=== PATIENT | female | born 1980 | race Caucasian/White ===

== ENCOUNTER 2016-05-05 00:17 | Emergency (ER) | payer MEDICAID ==
[~2016-05-05] VITALS: Ht 167.6 cm; Wt 109.1 kg
[~2016-05-05 00:17] MED LIST: ADIPEX-P37.5 MG PO; AMBIEN 5MG TABLE5 MG PO; CELEBREX 200MG200 MG PO; CELEXA; CELEXA40 MG; CELEXA40 MG PO; COLACE 100100 MG/CAP PO; COUMADIN; COUMADIN 22.5 MG/TAB PO; COUMADIN 5MG5 MG/TAB PO; COUMADIN4 MG; COUMADIN4 MG PO; CRESTOR20 MG PO; DAZIDOX20 MG PO; DOXYCYCLINE 10100 MG PO; DOXYCYCLINE100 M3 PO; ELIQUIS 5MG PO; ESCITALOPRAM PO; FLAGYL500 MG PO; FOLIC ACID 11 MG/TA1 PO; FOLIC ACID PO; GABAPENTIN100 M1 PO; HCTZ 25MG TAB25 MG PO; LEVAQUIN 750MG750 M1 PO; LEVSIN0.125 M1 PO; LEXAPRO20 MG PO; LOVENOX 100100 MG/ML SQ; LOVENOX120 MG/0.8 SC; METROGINE; NORCO 325 MG-51 TAB PO; OXY IR5 MG PO; OXYCODONE HCL5 MG PO; OXYCONTIN 10MG10 MG PO; PERCOCET 325 MG1 TA2 PO; PHENERGAN 25 TA25 MG PO; PHENERGAN25 MG RC; PRAVASTATIN40 MG PO; PRAZOSIN PO; PRILOSEC 20MG20 MG PO; PYRIDIUM 100MG100 MG PO; SYNTHROID0.05 MG/TA PO; SYNTHROID0.088 MG/T PO; TOPAMAX 100MG100 M1 PO; ULTRAM 50MG TAB50 MG PO; VALIUM 5MG T5 MG/TAB PO; VICODIN 5/5001 UDTAB PO; XANAX1 MG PO; ZOFRAN 4MG T4 MG/TAB PO; ZOFRAN ODT4 MG PO
[2016-05-05 00:43] LABS: BASO % 0.3 % (0.0-2.0); EOS # 0.2 (0.0-0.7); EOS % 1.9 % (0-4.0); GRAN # 5.1 (1.4-6.5); GRAN % 54.7 % (42.2-75.2); HEMATOCRIT 40.7 % (37.0-47.0); HEMOGLOBIN 13.4 g/dl (12.5-16.0); LYMPH # 3.5 (1.2-3.4); LYMPH % 37.5 % (20.0-51.0); MEAN CELL VOLUME 82 fl (80.0-100.0); MEAN CORPUSCULAR HEMOGLOBIN 27 pg (27.0-31.0); MEAN CORPUSCULAR HGB CONC 33 g/dl (33.0-37.0); MONO # 0.5 (0.1-0.6); MONO % 5.3 % (1.7-9.3); PLATELET COUNT 273 K/mm3 (130-400); RED BLOOD COUNT 4.97 M/mm3 (4.10-5.30); REDCELL DISTRIBUTION WIDTH-CV 13.6 % (11.5-14.5); WHITE BLOOD COUNT 9.3 K/mm3 (4.8-10.8)
[2016-05-05 00:54] LABS: ADJUSTED CALCIUM 8.9 mg/dL (8.4-10.2); ALANINE AMINOTRANSFERASE 41 U/L (9-52); ALBUMIN 4.1 gm/dL (3.5-5.0); ALKALINE PHOSPHATASE 102 U/L (50-136); ANION GAP 15 mmol/L (7-16); BILIRUBIN,TOTAL 0.9 mg/dL (0.0-1.0); BLOOD UREA NITROGEN 12 mg/dL (7-17); CARBON DIOXIDE 21 mmol/L (22-30); CHLORIDE 106 mmol/L (98-107); CREATININE, serum 0.96 mg/dL (0.52-1.25); GLUCOSE 100 mg/dL (74-106); LIPASE 394 U/L (23-300); POTASSIUM 3.3 mmol/L (3.4-5.0); SODIUM 142 mmol/L (137-145); TOTAL PROTEIN 7.4 gm/dL (6.4-8.2)
[2016-05-05 00:58] LABS: PROTHROMBIN TIME 41.2 SECONDS (9.7-12.8)
[2016-05-05 01:01] LABS: PARTIAL THROMBOPLASTIN TIME 44.3 SECONDS (26.0-37.0)
[2016-05-05 01:08] LABS: INR 3.6 (0.8-3.0); TROPONIN-I < 0.012 ng/mL (0.000-0.034)
[2016-05-05] MEDS ORDERED: CARAFATE 1GM1 G PO (05:09)
[2016-05-05] MEDS ORDERED: PHENERGAN 25 TA25 MG PO (05:09)
[2016-05-05 05:42] VITALS: BP 108/74; PULSE 75
== END 2016-05-05 05:42 | disposition home or self-care (01) ==
LOC: COL.ER 00:17
PROVIDERS: Emergency Medicine
DX: R10.13 Epigastric pain (principal); K29.60 Other gastritis without bleeding; Z90.49 Acquired absence of other specified parts of digestive tract
CPT/HCPCS: J1170; J1200; J2405; J2550; J7030; Q9967

== ENCOUNTER 2016-08-17 01:16 | Emergency (ER) | payer MEDICAID ==
[~2016-08-17 01:16] MED LIST changes: +CARAFATE 1GM1 G PO
[2016-08-17 01:19] VITALS: BP 151/87; TEMP 98.3
[2016-08-17] MEDS ORDERED: CEPHALEXIN500 M1 PO (02:03)
[2016-08-17 02:08] VITALS: PULSE 89
== END 2016-08-17 02:09 | disposition home or self-care (01) ==
LOC: COL.ER 01:16
DX: T81.31XA Disruption of external operation (surgical) wound, not elsewhere classified, initial encounter (principal)

== ENCOUNTER 2016-09-04 16:46 | Emergency (ER) | payer MEDICAID ==
[~2016-09-04] VITALS: Ht 167.6 cm; Wt 111.4 kg
[~2016-09-04 16:46] MED LIST changes: +CEPHALEXIN500 M1 PO
[2016-09-04 16:52] VITALS: BP 144/89; TEMP 98.1
[2016-09-04] MEDS ORDERED: TYLENOL 500MG500 MG PO (18:23)
[2016-09-04 20:15] VITALS: PULSE 80
== END 2016-09-04 20:15 | disposition home or self-care (01) ==
LOC: COL.ER 16:46
DX: T81.31XA Disruption of external operation (surgical) wound, not elsewhere classified, initial encounter (principal); C44.609 Unspecified malignant neoplasm of skin of left upper limb, including shoulder; Z92.3 Personal history of irradiation
CPT/HCPCS: J2550

== ENCOUNTER 2016-09-14 06:54 | Emergency (ER) | payer MEDICAID ==
[~2016-09-14] VITALS: Ht 167.6 cm; Wt 113.6 kg
[~2016-09-14 06:54] MED LIST changes: +TYLENOL 500MG500 MG PO
[2016-09-14 06:56] VITALS: TEMP 97.4
[2016-09-14 07:41] LABS: BASO # 0.1 (0.0-0.2); BASO % 0.6 % (0.0-2.0); EOS # 0.1 (0.0-0.7); EOS % 1.6 % (0-4.0); GRAN # 4.9 (1.4-6.5); GRAN % 58.1 % (42.2-75.2); HEMATOCRIT 37.6 % (37.0-47.0); HEMOGLOBIN 12.7 g/dl (12.5-16.0); LYMPH # 2.9 (1.2-3.4); LYMPH % 34.6 % (20.0-51.0); MEAN CELL VOLUME 84 fl (80.0-100.0); MEAN CORPUSCULAR HEMOGLOBIN 28 pg (27.0-31.0); MEAN CORPUSCULAR HGB CONC 34 g/dl (33.0-37.0); MEAN PLATELET VOLUME 10.2 fl (7.4-10.4); MONO # 0.4 (0.1-0.6); MONO % 4.6 % (1.7-9.3); PLATELET COUNT 219 K/mm3 (130-400); RED BLOOD COUNT 4.47 M/mm3 (4.10-5.30); REDCELL DISTRIBUTION WIDTH-CV 14.2 % (11.5-14.5); WHITE BLOOD COUNT 8.3 K/mm3 (4.8-10.8)
[2016-09-14 07:43] LABS: INR 1.7 (0.8-3.0); PROTHROMBIN TIME 18.8 SECONDS (9.7-12.8)
[2016-09-14 07:52] LABS: C-REACTIVE PROTEIN 0.8 mg/dL (0.0-0.9); CALCIUM 8.3 mg/dL (8.4-10.2); CREATININE, serum 0.76 mg/dL (0.52-1.25); POTASSIUM 3.5 mmol/L (3.4-5.0)
[2016-09-14 08:18] LABS: ERYTHROCYTE SEDIMENTATION RATE 9 mm/hr (0-20)
[2016-09-14] MEDS ORDERED: PHENERGAN 25 TA25 MG PO (08:22)
[2016-09-14] MEDS ORDERED: ULTRAM 50MG TAB50 MG PO (08:22)
[2016-09-14 08:24] VITALS: BP 116/76; PULSE 75
== END 2016-09-14 09:14 | disposition home or self-care (01) ==
LOC: COL.ER 06:54
PROVIDERS: Emergency Medicine
DX: R51 Headache (principal); R11.0 Nausea; Z79.01 Long term (current) use of anticoagulants; Z86.718 Personal history of other venous thrombosis and embolism; S09.90XA Unspecified injury of head, initial encounter; W19.XXXA Unspecified fall, initial encounter
CPT/HCPCS: J1170; J2405; J2765; J7030

== ENCOUNTER 2016-09-23 13:22 | Emergency (ER) | payer MEDICAID ==
[~2016-09-23] VITALS: Ht 167.6 cm; Wt 113.6 kg
[2016-09-23 13:25] VITALS: BP 118/83; PULSE 79; TEMP 98.1
[2016-09-23] MEDS ORDERED: CEPHALEXIN500 M1 PO (13:54)
== END 2016-09-23 16:14 | disposition home or self-care (01) ==
LOC: COL.ER 13:22
DX: T81.31XA Disruption of external operation (surgical) wound, not elsewhere classified, initial encounter (principal); I10 Essential (primary) hypertension; Z92.3 Personal history of irradiation; Z98.890 Other specified postprocedural states; Z80.8 Family history of malignant neoplasm of other organs or systems

== ENCOUNTER 2016-11-28 21:39 | Emergency (ER) | payer MEDICAID ==
[~2016-11-28] VITALS: Ht 15.2 cm; Wt 113.6 kg
[2016-11-28 21:41] VITALS: BP 158/84; TEMP 97.9
[2016-11-28] MEDS ORDERED: PRIL40 (22:19)
[2016-11-28 22:52] LABS: PH 5 (5-8); URINE APPEARANCE Cloudy; URINE BACTERIA Occasional /hpf; URINE BILIRUBIN Negative (NEGATIVE); URINE BLOOD 3+ (NEGATIVE); URINE COLOR Yellow; URINE GLUCOSE Negative (NEGATIVE); URINE KETONE Trace (NEGATIVE); URINE RBC >50 /hpf; URINE UROBILINOGEN Negative (NEGATIVE)
[2016-11-28 22:53] LABS: URINE WBC >50 /hpf
[2016-11-28] MEDS ORDERED: CEFTIN 250250 MG/TAB PO (23:07)
[2016-11-28 23:32] VITALS: PULSE 88
== END 2016-11-28 23:32 | disposition home or self-care (01) ==
LOC: COL.ER 21:39
PROVIDERS: Nurse Practitioner
DX: N39.0 Urinary tract infection, site not specified (principal); F32.9 Major depressive disorder, single episode, unspecified; Z86.711 Personal history of pulmonary embolism; Z86.718 Personal history of other venous thrombosis and embolism; Z90.49 Acquired absence of other specified parts of digestive tract; Z86.2 Personal history of diseases of the blood and blood-forming organs and certain disorders involving the immune mechanism; Z98.890 Other specified postprocedural states

== ENCOUNTER 2017-03-19 09:54 | Day surgery (SDC) | payer MEDICAID ==
[~2017-03-19] VITALS: Ht 167.6 cm; Wt 111.0 kg
[~2017-03-19 09:54] MED LIST changes: +CEFTIN 250250 MG/TAB PO; +CEFTIN500 MG PO; +CELEXA 20MG20 MG/TAB PO; -CELEXA40 MG PO; +PRIL40 PO; +TOPAMAX50 MG PO
[2017-03-19] MEDS ORDERED: ZOFRAN 4MG T4 MG/TAB PO (10:19)
[2017-03-19 10:51] VITALS: BP 106/80; PULSE 85; TEMP 98.4
[2017-03-19 12:15] VITALS: BP 108/69; PULSE 71
[2017-03-19 12:27] VITALS: BP 117/84; PULSE 75; TEMP 98
[2017-03-19 12:30] VITALS: BP 121/96; PULSE 68
== END 2017-03-19 13:10 | disposition home or self-care (01) ==
LOC: SDCO 09:54
DX: K64.0 First degree hemorrhoids (principal); K92.1 Melena; K92.0 Hematemesis; K29.30 Chronic superficial gastritis without bleeding; I10 Essential (primary) hypertension; K21.0 Gastro-esophageal reflux disease with esophagitis; D64.9 Anemia, unspecified; K58.9 Irritable bowel syndrome, unspecified; K52.9 Noninfective gastroenteritis and colitis, unspecified; F32.9 Major depressive disorder, single episode, unspecified; F41.9 Anxiety disorder, unspecified; G43.909 Migraine, unspecified, not intractable, without status migrainosus; C44.90 Unspecified malignant neoplasm of skin, unspecified; Z90.49 Acquired absence of other specified parts of digestive tract; Z86.010 Personal history of colon polyps; Z80.0 Family history of malignant neoplasm of digestive organs; Z83.71 Family history of colonic polyps
CPT/HCPCS: J2250; J2405; J2704; J2765; J3010; J7120

== ENCOUNTER 2017-05-22 16:33 | Emergency (ER) | payer MEDICAID ==
[~2017-05-22] VITALS: Ht 167.6 cm; Wt 101.8 kg
[2017-05-22 16:37] VITALS: BP 129/77; TEMP 98.6
[2017-05-22] MEDS ORDERED: PREDNISONE20 MG PO (17:01)
[2017-05-22 18:03] LABS: BASO % 0.2 % (0.0-2.0); GRAN # 10.3 (1.4-6.5); GRAN % 87.8 % (42.2-75.2); HEMATOCRIT 42.3 % (37.0-47.0); HEMOGLOBIN 14.3 g/dl (12.5-16.0); LYMPH # 1.2 (1.2-3.4); LYMPH % 10.2 % (20.0-51.0); MEAN CELL VOLUME 86 fl (80.0-100.0); MEAN CORPUSCULAR HEMOGLOBIN 29 pg (27.0-31.0); MEAN CORPUSCULAR HGB CONC 34 g/dl (33.0-37.0); MEAN PLATELET VOLUME 10.6 fl (7.4-10.4); MONO # 0.2 (0.1-0.6); MONO % 1.5 % (1.7-9.3); PLATELET COUNT 303 K/mm3 (130-400); RED BLOOD COUNT 4.95 M/mm3 (4.10-5.30); REDCELL DISTRIBUTION WIDTH-CV 13.5 % (11.5-14.5)
[2017-05-22 18:09] LABS: ALANINE AMINOTRANSFERASE 23 U/L (9-52); ALBUMIN 4.8 gm/dL (3.5-5.0); ALKALINE PHOSPHATASE 89 U/L (50-136); ANION GAP 12 mmol/L (7-16); AST,SGOT 14 U/L (15-37); BILIRUBIN,TOTAL 0.8 mg/dL (0.0-1.0); BLOOD UREA NITROGEN 12 mg/dL (7-17); CARBON DIOXIDE 16 mmol/L (22-30); CHLORIDE 111 mmol/L (98-107); CREATININE, serum 0.79 mg/dL (0.52-1.25); GLUCOSE 124 mg/dL (74-106); POTASSIUM 4.4 mmol/L (3.4-5.0); SODIUM 139 mmol/L (137-145); TOTAL PROTEIN 8.2 gm/dL (6.4-8.2)
[2017-05-22 18:10] LABS: C-REACTIVE PROTEIN < 0.5 mg/dL (0.0-0.9)
[2017-05-22] MEDS ORDERED: NORCO 325 MG-51 TAB PO (18:23)
[2017-05-22 18:32] VITALS: PULSE 71
== END 2017-05-22 18:33 | disposition home or self-care (01) ==
LOC: COL.ER 16:33
PROVIDERS: Family Medicine
DX: M79.651 Pain in right thigh (principal); T63.691A Toxic effect of contact with other venomous marine animals, accidental (unintentional), initial encounter
CPT/HCPCS: J2270; J2550

== ENCOUNTER → 2017-08-16 | Outpatient (CLI) | payer MEDICAID ==
[~2017-08-16] MED LIST changes: +PREDNISONE20 MG PO
== END ==
LOC: MHCPAIN 11:11
DX: G89.29 Other chronic pain (principal); M79.2 Neuralgia and neuritis, unspecified; M79.1 Myalgia; M46.96 Unspecified inflammatory spondylopathy, lumbar region
CPT/HCPCS: G0463

== ENCOUNTER 2017-09-27 17:59 | Emergency (ER) | payer MEDICAID ==
[~2017-09-27] VITALS: Ht 167.6 cm; Wt 106.0 kg
[2017-09-27 18:02] VITALS: BP 122/74; TEMP 97.5
[2017-09-27 19:37] VITALS: PULSE 79
== END 2017-09-27 18:58 | disposition home or self-care (01) ==
LOC: COL.ER 17:59
DX: S90.01XA Contusion of right ankle, initial encounter (principal); X50.0XXA Overexertion from strenuous movement or load, initial encounter

== ENCOUNTER 2017-10-12 20:32 | Emergency (ER) | payer MEDICAID ==
[~2017-10-12] VITALS: Ht 167.6 cm; Wt 104.5 kg
[2017-10-12 20:35] VITALS: BP 141/95; TEMP 97.5
[2017-10-12] MEDS ORDERED: ADVIL200 MG PO (21:05)
[2017-10-12] MEDS ORDERED: TYLENOL 500MG500 MG PO (21:05)
[2017-10-12] MEDS ORDERED: EXCEDRIN1 TAB PO (21:06)
[2017-10-12] MEDS ORDERED: AMOXICILLIN 8751 TAB PO (21:51)
[2017-10-12 22:05] VITALS: PULSE 74
== END 2017-10-12 22:10 | disposition home or self-care (01) ==
LOC: COL.ER 20:32
DX: K04.7 Periapical abscess without sinus (principal); Z79.01 Long term (current) use of anticoagulants

== ENCOUNTER → 2017-11-15 | Outpatient (CLI) | payer MEDICAID ==
[~2017-11-15] MED LIST changes: +ADVIL200 MG PO; +AMBIEN 10MG10 MG PO; -AMBIEN 5MG TABLE5 MG PO; +AMOXICILLIN 8751 TAB PO; +EXCEDRIN1 TAB PO; +IMITREX100 MG PO; +PRAVACHOL 40MG40 MG PO; -PRAVASTATIN40 MG PO; +SYNTHROID0.1 MG/TAB PO; +VITAMIN B-2 100MG PO
== END ==
LOC: COL.PAINC 11:09
DX: G89.29 Other chronic pain (principal); M47.817 Spondylosis without myelopathy or radiculopathy, lumbosacral region; M54.16 Radiculopathy, lumbar region; M53.3 Sacrococcygeal disorders, not elsewhere classified; M79.605 Pain in left leg
CPT/HCPCS: G0463

== ENCOUNTER → 2017-11-15 | Outpatient (CLI) | payer MEDICAID | LOC: COL.PAINC 11:12 | DX: Z53.8 Procedure and treatment not carried out for other reasons (principal) ==

== ENCOUNTER → 2017-11-15 | Outpatient (CLI) | payer MEDICAID | LOC: MHCPAIN 11:14 → COL.PAINC 11:14 | DX: Z53.8 Procedure and treatment not carried out for other reasons (principal) ==

== ENCOUNTER 2017-11-16 00:10 | Observation (INO) | payer MEDICAID ==
[~2017-11-16] VITALS: Ht 167.6 cm; Wt 107.7 kg
[~2017-11-16 00:10] MED LIST changes: -IMITREX100 MG PO; -SYNTHROID0.1 MG/TAB PO; -VITAMIN B-2 100MG PO
[2017-11-16 00:43] LABS: BASO # 0.1 (0.0-0.2); BASO % 0.5 % (0.0-2.0); EOS # 0.1 (0.0-0.7); EOS % 0.6 % (0-4.0); GRAN # 8.2 (1.4-6.5); GRAN % 62.8 % (42.2-75.2); HEMATOCRIT 39.3 % (37.0-47.0); HEMOGLOBIN 13.1 g/dl (12.5-16.0); LYMPH # 4.1 (1.2-3.4); LYMPH % 31.3 % (20.0-51.0); MEAN CELL VOLUME 87 fl (80.0-100.0); MEAN CORPUSCULAR HEMOGLOBIN 29 pg (27.0-31.0); MEAN CORPUSCULAR HGB CONC 33 g/dl (33.0-37.0); MEAN PLATELET VOLUME 10.6 fl (7.4-10.4); MONO # 0.6 (0.1-0.6); MONO % 4.3 % (1.7-9.3); PLATELET COUNT 266 K/mm3 (130-400); RED BLOOD COUNT 4.53 M/mm3 (4.10-5.30); REDCELL DISTRIBUTION WIDTH-CV 13.5 % (11.5-14.5)
[2017-11-16 00:57] LABS: ALANINE AMINOTRANSFERASE 23 U/L (9-52); ALBUMIN 4.1 gm/dL (3.5-5.0); ALKALINE PHOSPHATASE 73 U/L (50-136); ANION GAP 13 mmol/L (7-16); AST,SGOT 18 U/L (15-37); BILIRUBIN,TOTAL 0.5 mg/dL (0.0-1.0); BLOOD UREA NITROGEN 18 mg/dL (7-17); CALCIUM 9.1 mg/dL (8.4-10.2); CARBON DIOXIDE 20 mmol/L (22-30); CHLORIDE 106 mmol/L (98-107); CREATININE, serum 0.91 mg/dL (0.52-1.25); GLUCOSE 101 mg/dL (74-106); POTASSIUM 3.5 mmol/L (3.4-5.0); SODIUM 140 mmol/L (137-145); TOTAL PROTEIN 7.4 gm/dL (6.4-8.2)
[2017-11-16 01:09] LABS: TROPONIN-I < 0.012 ng/mL (0.000-0.034)
[2017-11-16 01:13] LABS: THYROXINE (T4)-TOTAL 9.8 ug/dL (5.5-11.0)
[2017-11-16 01:18] LABS: PARTIAL THROMBOPLASTIN TIME 37.3 SECONDS (26.0-37.0)
[2017-11-16 02:21] LABS: COLLECTION METHOD CLEAN CATCH
[2017-11-16 02:26] LABS: MUCOUS Present /lpf; PH 5 (5-8); SQUAMOUS EPITHELIAL 0-2 /hpf; URINE APPEARANCE Clear; URINE BACTERIA None Seen /hpf; URINE BILIRUBIN Negative (NEGATIVE); URINE BLOOD Negative (NEGATIVE); URINE COLOR Yellow; URINE GLUCOSE Negative (NEGATIVE); URINE KETONE Negative (NEGATIVE); URINE LEUKOCYTE ESTERASE Trace (NEGATIVE); URINE NITRATE Negative (NEGATIVE); URINE PROTEIN(semi-quant) Negative (NEGATIVE); URINE RBC 0-2 /hpf; URINE UROBILINOGEN Negative (NEGATIVE)
[2017-11-16 04:13] LABS: INR 1.3 (0.8-3.0); PROTHROMBIN TIME 14.8 SECONDS (9.7-12.8)
[2017-11-16] MEDS ORDERED: VALIUM 5MG T5 MG/TAB PO (04:43)
[2017-11-16 05:19] VITALS: BP 114/65; PULSE 71; TEMP 98.6
[2017-11-16 07:48] VITALS: BP 108/73; PULSE 65; TEMP 97.9
[2017-11-16 08:09] LABS: BASO # 0.1 (0.0-0.2); BASO % 0.6 % (0.0-2.0); EOS # 0.1 (0.0-0.7); EOS % 1.2 % (0-4.0); GRAN # 6.2 (1.4-6.5); GRAN % 58.5 % (42.2-75.2); HEMOGLOBIN 12.3 g/dl (12.5-16.0); LYMPH # 3.6 (1.2-3.4); LYMPH % 34.6 % (20.0-51.0); MEAN CELL VOLUME 88 fl (80.0-100.0); MEAN CORPUSCULAR HEMOGLOBIN 29 pg (27.0-31.0); MEAN CORPUSCULAR HGB CONC 33 g/dl (33.0-37.0); MONO # 0.5 (0.1-0.6); MONO % 4.8 % (1.7-9.3); PLATELET COUNT 244 K/mm3 (130-400); REDCELL DISTRIBUTION WIDTH-CV 13.6 % (11.5-14.5)
[2017-11-16 08:33] LABS: TROPONIN-I < 0.012 ng/mL (0.000-0.034)
[2017-11-16 08:35] LABS: CREATININE, serum 0.06 mg/dL (0.52-1.25)
[2017-11-16 08:36] LABS: CALCIUM 8.5 mg/dL (8.4-10.2); POTASSIUM 3.6 mmol/L (3.4-5.0)
[2017-11-16 08:58] VITALS: BP 108/73
[2017-11-16 11:45] VITALS: BP 95/54; PULSE 58; TEMP 97.5
[2017-11-16] MEDS ORDERED: SYNTHROID0.1 MG/TAB PO (16:50)
[2017-11-16] MEDS ORDERED: VITAMIN B-2 100MG PO (16:50)
[2017-11-16] MEDS ORDERED: IMITREX100 MG PO (16:51)
[2017-11-16] MEDS ORDERED: ZOFRAN ODT4 MG PO (17:28)
== END 2017-11-16 20:08 | disposition home or self-care (01) ==
LOC: COL.ER 00:10 → SURG 03:36
PROVIDERS: Emergency Medicine; Nurse Practitioner Family
DX: R55 Syncope and collapse (principal); E03.9 Hypothyroidism, unspecified; G43.909 Migraine, unspecified, not intractable, without status migrainosus; F32.9 Major depressive disorder, single episode, unspecified; F41.9 Anxiety disorder, unspecified; E78.5 Hyperlipidemia, unspecified; D72.829 Elevated white blood cell count, unspecified; E78.1 Pure hyperglyceridemia; E46 Unspecified protein-calorie malnutrition; Z79.01 Long term (current) use of anticoagulants; Z90.49 Acquired absence of other specified parts of digestive tract; Z88.3 Allergy status to other anti-infective agents; Z86.718 Personal history of other venous thrombosis and embolism; Z86.711 Personal history of pulmonary embolism; Z87.19 Personal history of other diseases of the digestive system
CPT/HCPCS: J1885; J2405; J7030; Q9967

== ENCOUNTER 2017-11-16 09:15 | Outpatient (RCR) | payer MEDICAID ==
[2017-11-16] MEDS ORDERED: VITAMIN B-2 100MG PO (16:50)
[2017-11-16] MEDS ORDERED: SYNTHROID0.1 MG/TAB PO (16:50)
[2017-11-16] MEDS ORDERED: IMITREX100 MG PO (16:51)
[2017-11-16] MEDS ORDERED: ZOFRAN ODT4 MG PO (17:28)
== END 2017-11-30 | disposition home or self-care (01) ==
LOC: WSPT
DX: M46.96 Unspecified inflammatory spondylopathy, lumbar region (principal); M79.1 Myalgia; M79.2 Neuralgia and neuritis, unspecified; G89.29 Other chronic pain
CPT/HCPCS: G0283-GP

== ENCOUNTER → 2017-12-01 | Outpatient (CLI) | payer SELFPAY ==
[~2017-12-01] MED LIST changes: +IMITREX100 MG PO; +SYNTHROID0.1 MG/TAB PO; +VITAMIN B-2 100MG PO
== END ==
LOC: COL.VAS 12:12
DX: M79.89 Other specified soft tissue disorders (principal); M79.662 Pain in left lower leg

== ENCOUNTER 2018-01-30 21:05 | Observation (INO) | payer MEDICAID ==
[~2018-01-30] VITALS: Ht 167.6 cm; Wt 103.5 kg
[2018-01-30 22:21] LABS: BASO # 0.1 (0.0-0.2); BASO % 0.7 % (0.0-2.0); EOS # 0.1 (0.0-0.7); EOS % 0.9 % (0-4.0); GRAN # 6.2 (1.4-6.5); GRAN % 58.3 % (42.2-75.2); HEMATOCRIT 38.8 % (37.0-47.0); LYMPH # 3.7 (1.2-3.4); MEAN CELL VOLUME 88 fl (80.0-100.0); MEAN CORPUSCULAR HEMOGLOBIN 29 pg (27.0-31.0); MEAN CORPUSCULAR HGB CONC 34 g/dl (33.0-37.0); MEAN PLATELET VOLUME 10.3 fl (7.4-10.4); MONO # 0.5 (0.1-0.6); MONO % 4.9 % (1.7-9.3); PLATELET COUNT 258 K/mm3 (130-400); RED BLOOD COUNT 4.42 M/mm3 (4.10-5.30); REDCELL DISTRIBUTION WIDTH-CV 13.3 % (11.5-14.5)
[2018-01-30 22:34] LABS: ALBUMIN 3.8 gm/dL (3.5-5.0); BILIRUBIN,TOTAL 0.4 mg/dL (0.0-1.0); CALCIUM 8.6 mg/dL (8.4-10.2); CREATININE, serum 0.73 mg/dL (0.52-1.25); POTASSIUM 3.8 mmol/L (3.4-5.0)
[2018-01-30 23:50] LABS: COLLECTION METHOD CLEAN CATCH
[2018-01-30 23:59] LABS: PH 6 (5-8); SQUAMOUS EPITHELIAL 0-2 /hpf; URINE APPEARANCE Clear; URINE BACTERIA None Seen /hpf; URINE BILIRUBIN Negative (NEGATIVE); URINE BLOOD Negative (NEGATIVE); URINE COLOR Yellow; URINE GLUCOSE Negative (NEGATIVE); URINE KETONE Negative (NEGATIVE); URINE LEUKOCYTE ESTERASE Negative (NEGATIVE); URINE NITRATE Negative (NEGATIVE); URINE PROTEIN(semi-quant) Negative (NEGATIVE); URINE RBC None Seen /hpf; URINE UROBILINOGEN Negative (NEGATIVE)
[2018-01-31] VITALS (11 sets, daily range): BP systolic 91–118; BP diastolic 38–69; PULSE 75–117; TEMP 97.6–98.2
[2018-01-31] MEDS ORDERED: MULTI VITAMINS1 TAB PO (01:05)
[2018-01-31] MEDS ORDERED: RT ALBUTER2.5 MG/0.5 IH (01:13)
[2018-01-31] MEDS ORDERED: MAGNESIUM CHELA27 MG PO (01:14)
[2018-01-31] MEDS ORDERED: THE MEDICINE S200 M2 PO (01:15)
[2018-02-01] VITALS: BP 119/77; PULSE 74; TEMP 97.8
[2018-02-01 07:54] VITALS: BP 116/74; PULSE 78; TEMP 97.9
[2018-02-01 12:00] VITALS: BP 118/68; PULSE 73; TEMP 97.9
[2018-02-01 15:30] VITALS: BP 103/68; PULSE 77; TEMP 97.6
[2018-02-01] MEDS ORDERED: PERCOCET 325 MG1 TA3 PO (17:09)
[2018-02-01] MEDS ORDERED: MOTRIN 600600 MG/TAB PO (17:09)
[2018-02-01] MEDS ORDERED: COLACE 100100 MG/CAP PO (17:10)
== END 2018-02-01 18:04 | disposition home or self-care (01) ==
LOC: COL.ER 21:05 → SURG 01-31 00:15
PROVIDERS: Family Medicine
DX: K35.80 Unspecified acute appendicitis (principal); G43.909 Migraine, unspecified, not intractable, without status migrainosus; G89.29 Other chronic pain; M54.9 Dorsalgia, unspecified; J45.909 Unspecified asthma, uncomplicated; K21.9 Gastro-esophageal reflux disease without esophagitis; F32.9 Major depressive disorder, single episode, unspecified; F41.9 Anxiety disorder, unspecified; E03.9 Hypothyroidism, unspecified; E66.9 Obesity, unspecified; Z68.37 Body mass index [BMI] 37.0-37.9, adult; Z79.01 Long term (current) use of anticoagulants; Z91.041 Radiographic dye allergy status; Z90.49 Acquired absence of other specified parts of digestive tract; Z86.711 Personal history of pulmonary embolism; Z85.828 Personal history of other malignant neoplasm of skin; Z86.718 Personal history of other venous thrombosis and embolism
CPT/HCPCS: G0378; J1100; J1170; J1200; J1650; J2250; J2270; J2405; J2543; J2550; J2704; J2710; J2765; J3010; J7030; J7120; Q9967

== ENCOUNTER 2018-02-18 15:10 | Emergency (ER) | payer MEDICAID ==
[~2018-02-18] VITALS: Ht 167.6 cm; Wt 106.8 kg
[~2018-02-18 15:10] MED LIST changes: +MAGNESIUM CHELA27 MG PO; +MOTRIN 600600 MG/TAB PO; +MULTI VITAMINS1 TAB PO; +PERCOCET 325 MG1 TA3 PO; +RT ALBUTER2.5 MG/0.5 IH; +THE MEDICINE S200 M2 PO
[2018-02-18 15:26] VITALS: TEMP 98.5
[2018-02-18 16:38] LABS: BASO % 0.5 % (0.0-2.0); EOS # 0.1 (0.0-0.7); EOS % 0.7 % (0-4.0); GRAN # 5.7 (1.4-6.5); GRAN % 64.4 % (42.2-75.2); HEMATOCRIT 40.4 % (37.0-47.0); HEMOGLOBIN 13.8 g/dl (12.5-16.0); LYMPH # 2.7 (1.2-3.4); LYMPH % 30.2 % (20.0-51.0); MEAN CELL VOLUME 86 fl (80.0-100.0); MEAN CORPUSCULAR HEMOGLOBIN 29 pg (27.0-31.0); MEAN CORPUSCULAR HGB CONC 34 g/dl (33.0-37.0); MEAN PLATELET VOLUME 10.1 fl (7.4-10.4); MONO # 0.4 (0.1-0.6); PLATELET COUNT 276 K/mm3 (130-400); RED BLOOD COUNT 4.69 M/mm3 (4.10-5.30); REDCELL DISTRIBUTION WIDTH-CV 12.9 % (11.5-14.5)
[2018-02-18 16:52] LABS: ALANINE AMINOTRANSFERASE 19 U/L (9-52); ALKALINE PHOSPHATASE 71 U/L (50-136); ANION GAP 9 mmol/L (7-16); AST,SGOT 15 U/L (15-37); BILIRUBIN,TOTAL 0.6 mg/dL (0.0-1.0); BLOOD UREA NITROGEN 15 mg/dL (7-17); CARBON DIOXIDE 20 mmol/L (22-30); CHLORIDE 112 mmol/L (98-107); CREATININE, serum 0.76 mg/dL (0.52-1.25); GLUCOSE 85 mg/dL (74-106); POTASSIUM 3.6 mmol/L (3.4-5.0); SODIUM 141 mmol/L (137-145); TOTAL PROTEIN 7.2 gm/dL (6.4-8.2)
[2018-02-18 16:53] LABS: C-REACTIVE PROTEIN < 0.5 mg/dL (0.0-0.9)
[2018-02-18] MEDS ORDERED: ULTRAM 50MG TAB50 MG PO (17:18)
[2018-02-18] MEDS ORDERED: MEDROL 4MG DOSPA4 MG PO (17:18)
[2018-02-18 17:39] VITALS: BP 114/85; PULSE 76
== END 2018-02-18 17:43 | disposition home or self-care (01) ==
LOC: COL.ER 15:10
PROVIDERS: Emergency Medicine
DX: M54.16 Radiculopathy, lumbar region (principal); G43.909 Migraine, unspecified, not intractable, without status migrainosus; F41.9 Anxiety disorder, unspecified; F32.9 Major depressive disorder, single episode, unspecified; Z86.718 Personal history of other venous thrombosis and embolism; Z79.01 Long term (current) use of anticoagulants; Z86.711 Personal history of pulmonary embolism
CPT/HCPCS: J7512

== ENCOUNTER 2018-03-11 14:15 | Outpatient (RCR) | payer MEDICAID ==
[~2018-03-11 14:15] MED LIST changes: +MEDROL 4MG DOSPA4 MG PO
== END 2018-03-17 09:49 | disposition home or self-care (01) ==
LOC: WSPT 14:15
DX: M54.9 Dorsalgia, unspecified (principal)

== ENCOUNTER → 2018-03-18 | Outpatient (CLI) | payer MEDICAID | LOC: COL.RAD 12:30 | DX: M51.17 Intervertebral disc disorders with radiculopathy, lumbosacral region (principal); M48.061 Spinal stenosis, lumbar region without neurogenic claudication ==

== ENCOUNTER 2018-04-04 22:17 | Emergency (ER) | payer MEDICAID ==
[~2018-04-04] VITALS: Ht 167.6 cm; Wt 101.8 kg
[2018-04-04 23:32] LABS: BASO # 0.1 (0.0-0.2); BASO % 0.5 % (0.0-2.0); EOS # 0.2 (0.0-0.7); EOS % 1.9 % (0-4.0); GRAN # 4.9 (1.4-6.5); GRAN % 51.6 % (42.2-75.2); HEMATOCRIT 40.1 % (37.0-47.0); HEMOGLOBIN 13.6 g/dl (12.5-16.0); LYMPH # 3.9 (1.2-3.4); LYMPH % 41.1 % (20.0-51.0); MEAN CELL VOLUME 87 fl (80.0-100.0); MEAN CORPUSCULAR HEMOGLOBIN 30 pg (27.0-31.0); MEAN CORPUSCULAR HGB CONC 34 g/dl (33.0-37.0); MONO # 0.4 (0.1-0.6); MONO % 4.6 % (1.7-9.3); PLATELET COUNT 237 K/mm3 (130-400); RED BLOOD COUNT 4.61 M/mm3 (4.10-5.30); REDCELL DISTRIBUTION WIDTH-CV 13.2 % (11.5-14.5)
[2018-04-04 23:49] LABS: ALBUMIN 4.2 gm/dL (3.5-5.0); BILIRUBIN,TOTAL 0.3 mg/dL (0.0-1.0); C-REACTIVE PROTEIN 0.5 mg/dL (0.0-0.9); CALCIUM 9.2 mg/dL (8.4-10.2); CREATININE, serum 0.87 mg/dL (0.52-1.25); POTASSIUM 3.7 mmol/L (3.4-5.0); TOTAL PROTEIN 7.4 gm/dL (6.4-8.2)
[2018-04-04 23:50] LABS: INR 1.1 (0.8-3.0); PROTHROMBIN TIME 12.8 SECONDS (9.7-12.8)
[2018-04-04] MEDS ORDERED: RELPAX 40MG TAB40 MG PO (23:50)
[2018-04-04] MEDS ORDERED: AMERGE 2.5MG T2.5 MG PO (23:51)
[2018-04-05] MEDS ORDERED: ZOFRAN 4MG T4 MG/TAB PO (01:10)
[2018-04-05] MEDS ORDERED: LOVENOX 100100 MG/ML SQ (01:10)
[2018-04-05] MEDS ORDERED: NORCO 325 MG-51 TAB PO (01:10)
[2018-04-05 01:16] VITALS: BP 123/82; PULSE 86; TEMP 98.4
== END 2018-04-05 01:45 | disposition home or self-care (01) ==
LOC: COL.ER 22:17
PROVIDERS: Family Medicine
DX: K62.5 Hemorrhage of anus and rectum (principal); G43.909 Migraine, unspecified, not intractable, without status migrainosus; Z90.49 Acquired absence of other specified parts of digestive tract; Z90.89 Acquired absence of other organs; Z79.01 Long term (current) use of anticoagulants; Z86.718 Personal history of other venous thrombosis and embolism; Z86.711 Personal history of pulmonary embolism
CPT/HCPCS: J2270; J2405; J7030

== ENCOUNTER 2018-04-05 19:30 | Observation (INO) | payer MEDICAID ==
[~2018-04-05] VITALS: Ht 167.6 cm; Wt 110.4 kg
[~2018-04-05 19:30] MED LIST changes: +AMERGE 2.5MG T2.5 MG PO; +RELPAX 40MG TAB40 MG PO
[2018-04-05 23:05] LABS: BASO # 0.1 (0.0-0.2); BASO % 0.8 % (0.0-2.0); EOS # 0.1 (0.0-0.7); EOS % 1.5 % (0-4.0); GRAN # 4.5 (1.4-6.5); GRAN % 51.3 % (42.2-75.2); HEMATOCRIT 40.9 % (37.0-47.0); HEMOGLOBIN 13.8 g/dl (12.5-16.0); LYMPH # 3.7 (1.2-3.4); LYMPH % 41.8 % (20.0-51.0); MEAN CELL VOLUME 89 fl (80.0-100.0); MEAN CORPUSCULAR HEMOGLOBIN 30 pg (27.0-31.0); MEAN CORPUSCULAR HGB CONC 34 g/dl (33.0-37.0); MEAN PLATELET VOLUME 10.6 fl (7.4-10.4); MONO # 0.4 (0.1-0.6); MONO % 4.3 % (1.7-9.3); PLATELET COUNT 228 K/mm3 (130-400); RED BLOOD COUNT 4.62 M/mm3 (4.10-5.30); REDCELL DISTRIBUTION WIDTH-CV 13.2 % (11.5-14.5)
[2018-04-05 23:20] LABS: ALBUMIN 4.1 gm/dL (3.5-5.0); BILIRUBIN,TOTAL 0.3 mg/dL (0.0-1.0); CALCIUM 9.3 mg/dL (8.4-10.2); CREATININE, serum 0.89 mg/dL (0.52-1.25); POTASSIUM 4.2 mmol/L (3.4-5.0); TOTAL PROTEIN 7.2 gm/dL (6.4-8.2)
[2018-04-05 23:21] LABS: C-REACTIVE PROTEIN 0.5 mg/dL (0.0-0.9)
[2018-04-05 23:30] LABS: PROTHROMBIN TIME 11.7 SECONDS (9.7-12.8)
[2018-04-06] VITALS (8 sets, daily range): BP systolic 99–110; BP diastolic 50–70; PULSE 58–80; TEMP 97.6–98.6
[2018-04-06 03:26] LABS: COLLECTION METHOD CLEAN CATCH
[2018-04-06 03:36] LABS: MUCOUS Present /lpf; PH 7 (5-8); URINE APPEARANCE Hazy; URINE BACTERIA None Seen /hpf; URINE BILIRUBIN Negative (NEGATIVE); URINE BLOOD Negative (NEGATIVE); URINE COLOR Yellow; URINE GLUCOSE Negative (NEGATIVE); URINE KETONE Negative (NEGATIVE); URINE LEUKOCYTE ESTERASE Negative (NEGATIVE); URINE NITRATE Negative (NEGATIVE); URINE PROTEIN(semi-quant) Negative (NEGATIVE); URINE UROBILINOGEN Negative (NEGATIVE)
[2018-04-06 07:33] LABS: HEMATOCRIT 39.6 % (37.0-47.0); HEMOGLOBIN 13.1 g/dl (12.5-16.0)
[2018-04-06 17:23] LABS: HEMATOCRIT 36.3 % (37.0-47.0); HEMOGLOBIN 12.3 g/dl (12.5-16.0)
== END 2018-04-06 17:43 | disposition home or self-care (01) ==
LOC: COL.ER 19:30 → SURG 04-06 00:29
PROVIDERS: Emergency Medicine; Internal Medicine; Nurse Practitioner Family; Physician Assistant
DX: R19.5 Other fecal abnormalities (principal); K21.9 Gastro-esophageal reflux disease without esophagitis; K29.30 Chronic superficial gastritis without bleeding; Z87.11 Personal history of peptic ulcer disease; K64.1 Second degree hemorrhoids; E03.9 Hypothyroidism, unspecified; D68.9 Coagulation defect, unspecified; D68.61 Antiphospholipid syndrome; E72.12 Methylenetetrahydrofolate reductase deficiency; Z86.718 Personal history of other venous thrombosis and embolism; Z86.711 Personal history of pulmonary embolism; Z79.01 Long term (current) use of anticoagulants; Z79.899 Other long term (current) drug therapy; G43.909 Migraine, unspecified, not intractable, without status migrainosus; N83.201 Unspecified ovarian cyst, right side; K57.30 Diverticulosis of large intestine without perforation or abscess without bleeding; F32.9 Major depressive disorder, single episode, unspecified; F41.9 Anxiety disorder, unspecified; Z97.5 Presence of (intrauterine) contraceptive device; E78.5 Hyperlipidemia, unspecified; R10.9 Unspecified abdominal pain; Z80.8 Family history of malignant neoplasm of other organs or systems; Z91.041 Radiographic dye allergy status; Z91.048 Other nonmedicinal substance allergy status
CPT/HCPCS: G0378; J1170; J1650; J2060; J2405; J2550; J2704; J7030; Q9967

== ENCOUNTER → 2018-06-01 | Outpatient (CLI) | payer MEDICAID ==
[~2018-06-01] MED LIST changes: +LEVOXYL0.1 MG PO
== END ==
LOC: MHCPAIN 14:18
DX: G89.29 Other chronic pain (principal); M47.817 Spondylosis without myelopathy or radiculopathy, lumbosacral region; M53.3 Sacrococcygeal disorders, not elsewhere classified
CPT/HCPCS: G0463

== ENCOUNTER 2018-06-03 12:39 | Outpatient (CLI) | payer MEDICAID ==
[~2018-06-03] VITALS: Ht 167.6 cm; Wt 108.0 kg
[~2018-06-03 12:39] MED LIST changes: -LEVOXYL0.1 MG PO
[2018-06-03 12:59] VITALS: BP 111/73; PULSE 67; TEMP 98.2
[2018-06-03] MEDS ORDERED: LEVOXYL0.1 MG PO (13:03)
[2018-06-03] MEDS ORDERED: ZOFRAN 4MG T4 MG/TAB PO (13:07)
[2018-06-03] MEDS ORDERED: VITAMIN B-2 100MG PO (13:08)
[2018-06-03] MEDS ORDERED: ADIPEX-P37.5 MG PO (13:10)
[2018-06-03 14:30] VITALS: BP 109/68; PULSE 69; TEMP 98.6
== END 2018-06-03 15:13 | disposition home or self-care (01) ==
LOC: EUO 12:39
DX: K52.9 Noninfective gastroenteritis and colitis, unspecified (principal); E86.0 Dehydration
CPT/HCPCS: J7030

== ENCOUNTER → 2018-06-16 | Outpatient (CLI) | payer MEDICAID ==
[~2018-06-16] MED LIST changes: +LEVOXYL0.1 MG PO
== END ==
LOC: MHCPAIN 08:47
DX: M47.817 Spondylosis without myelopathy or radiculopathy, lumbosacral region (principal); M54.16 Radiculopathy, lumbar region

== ENCOUNTER → 2018-06-22 | Outpatient (CLI) | payer MEDICAID | LOC: MHCPAIN 11:21 | DX: G89.29 Other chronic pain (principal); M47.817 Spondylosis without myelopathy or radiculopathy, lumbosacral region; M53.3 Sacrococcygeal disorders, not elsewhere classified; M79.2 Neuralgia and neuritis, unspecified | CPT/HCPCS: G0463 ==

== ENCOUNTER 2018-07-19 06:10 | Day surgery (SDC) | payer MEDICAID ==
[~2018-07-19] VITALS: Ht 167.6 cm; Wt 108.0 kg
[2018-07-19] MEDS ORDERED: AMBIEN 10MG10 MG PO (06:37)
[2018-07-19] MEDS ORDERED: RELPAX 40MG TAB40 MG PO (06:37)
[2018-07-19] MEDS ORDERED: PROTONIX20 MG PO (06:37)
[2018-07-19 07:06] VITALS: BP 136/73; PULSE 86; TEMP 98.5
--- NOTE | 2018-07-19 07:12 | NUR ---
Patient complains of "nausea, because of nerves". She is given a warm blanket per request. Given a cool washcloth for her forehead, an emesis bag, lights in room offered to dim (patient refuses), IV Pepcid per pre-op order. Patient thanks staff for care. This RN attempted to contact JOSE Lee to request PRN Nausea medication - no answer at this time. Will continue to monitor.
[2018-07-19 08:50] VITALS: BP 150/110; PULSE 103; TEMP 97.4
--- NOTE | 2018-07-19 08:50 | NUR ---
Patient arrives to [facility] [address] via cart, accompanied by ENVELOPE FOLDING MACHINE ADJUSTER Trang and STRATEGIC MARKETING ASSOCIATE Redd Lee. Bedside report received. Patient is emotional, crying. Her operative site is covered with gauze and mesh underwear, but no drainage or bleeding is noted. Patient is lying on her left side. Crying out "my butt hurts". Dr. Cavazos is speaking with the patient's family. Lights dimmed, patient given water and crackers. Will consult with Dr. Cavazos when he is available.
[2018-07-19 09:05] VITALS: BP 155/119; PULSE 92
--- NOTE | 2018-07-19 09:05 | NUR ---
Patient continues to have 10/[address] Cavazos comes to the bedside and talks with the patient. Patient given 0.5mg of IV Dilaudid. Will continue to monitor.
--- NOTE | 2018-07-19 09:20 | NUR ---
Patient requests to use restroom. States her pain is improved. Escorted to restroom at this time. Patient's fiance, Markus, stays with patient in the restroom per request.
[2018-07-19] MEDS ORDERED: PERCOCET 325 MG1 TA2 PO (09:22)
[2018-07-19] MEDS ORDERED: COLACE 100100 MG/CAP PO (09:23)
[2018-07-19 09:34] VITALS: BP 142/90; PULSE 84
--- NOTE | 2018-07-19 09:34 | NUR ---
Patient was able to void and returns to room with standby assist and steady gait.
--- NOTE | 2018-07-19 09:40 | NUR ---
Patient states that she is starting to get a migraine. She requests that she be able to take her home dose of PRN Naratryptine. Per Redd Lee, patient may take her home medication.
[2018-07-19 09:50] VITALS: BP 134/86; PULSE 90
--- NOTE | 2018-07-19 09:50 | NUR ---
VSS and WNL on room air.
--- NOTE | 2018-07-19 10:05 | NUR ---
Patient has met discharge criteria. PIV removed with catheter intact and hemostasis achieved.
--- NOTE | 2018-07-19 10:15 | NUR ---
Patient changed to clothing independently. Discharge instructions discussed, denies any questions, and verbalizes understanding.
--- NOTE | 2018-07-19 10:30 | NUR ---
Patient escorted to exit via wheelchair. Discharged to home with ride in private vehicle at 1030.
== END 2018-07-19 10:30 | disposition home or self-care (01) ==
LOC: SDCO 06:10
DX: K64.8 Other hemorrhoids (principal); K60.1 Chronic anal fissure; Z91.041 Radiographic dye allergy status; Z79.899 Other long term (current) drug therapy; Z79.01 Long term (current) use of anticoagulants; E03.9 Hypothyroidism, unspecified; E78.00 Pure hypercholesterolemia, unspecified; D64.9 Anemia, unspecified; D68.9 Coagulation defect, unspecified; Z86.711 Personal history of pulmonary embolism; G89.29 Other chronic pain; M54.9 Dorsalgia, unspecified; Z86.73 Personal history of transient ischemic attack (TIA), and cerebral infarction without residual deficits; Z90.49 Acquired absence of other specified parts of digestive tract; K90.89 Other intestinal malabsorption; Z80.8 Family history of malignant neoplasm of other organs or systems; Z86.718 Personal history of other venous thrombosis and embolism; D68.51 Activated protein C resistance; F32.9 Major depressive disorder, single episode, unspecified; F41.9 Anxiety disorder, unspecified; M54.16 Radiculopathy, lumbar region; M79.605 Pain in left leg; R20.0 Anesthesia of skin
CPT/HCPCS: J0690; J1100; J1170; J1885; J2250; J2405; J2704; J7120

== ENCOUNTER → 2018-09-30 | Outpatient (CLI) | payer MEDICAID ==
[~2018-09-30] MED LIST changes: +PROTONIX20 MG PO
== END ==
LOC: MC.RAD 13:41
DX: Z12.31 Encounter for screening mammogram for malignant neoplasm of breast (principal)

== ENCOUNTER 2018-10-12 19:24 | Emergency (ER) | payer MEDICAID ==
[~2018-10-12] VITALS: Ht 167.6 cm; Wt 104.5 kg
[2018-10-12 19:25] VITALS: TEMP 97.3
[2018-10-12 20:15] LABS: BASO # 0.1 (0.0-0.2); BASO % 0.5 % (0.0-2.0); EOS # 0.3 (0.0-0.7); EOS % 2.9 % (0-4.0); GRAN # 5.4 (1.4-6.5); GRAN % 54.7 % (42.2-75.2); HEMATOCRIT 40.7 % (37.0-47.0); HEMOGLOBIN 13.6 g/dl (12.5-16.0); LYMPH # 3.6 (1.2-3.4); MEAN CELL VOLUME 86 fl (80.0-100.0); MEAN CORPUSCULAR HEMOGLOBIN 29 pg (27.0-31.0); MEAN CORPUSCULAR HGB CONC 33 g/dl (33.0-37.0); MEAN PLATELET VOLUME 10.1 fl (7.4-10.4); MONO # 0.6 (0.1-0.6); MONO % 5.7 % (1.7-9.3); PLATELET COUNT 228 K/mm3 (130-400); RED BLOOD COUNT 4.73 M/mm3 (4.10-5.30); REDCELL DISTRIBUTION WIDTH-CV 12.7 % (11.5-14.5)
[2018-10-12 20:31] LABS: BILIRUBIN,TOTAL 0.7 mg/dL (0.0-1.0); CALCIUM 9.2 mg/dL (8.4-10.2); CREATININE, serum 0.92 (0.52-1.25); POTASSIUM 3.5 mmol/L (3.4-5.0); TOTAL PROTEIN 7.2 gm/dL (6.4-8.2)
[2018-10-12 22:45] VITALS: BP 111/77; PULSE 80
== END 2018-10-12 22:45 | disposition home or self-care (01) ==
LOC: COL.ER 19:24
PROVIDERS: Emergency Medicine
DX: R42 Dizziness and giddiness (principal); Z79.01 Long term (current) use of anticoagulants; Z86.711 Personal history of pulmonary embolism; Z86.718 Personal history of other venous thrombosis and embolism
CPT/HCPCS: J2405

== ENCOUNTER → 2019-04-04 | Outpatient (CLI) | payer MEDICAID | LOC: COL.RAD 14:50 | DX: N83.201 Unspecified ovarian cyst, right side (principal); Z97.5 Presence of (intrauterine) contraceptive device ==

== ENCOUNTER 2019-05-23 23:23 | Emergency (ER) | payer MEDICAID ==
[~2019-05-23] VITALS: Ht 167.6 cm; Wt 113.6 kg
[2019-05-23 23:54] LABS: BASO # 0.1 (0.0-0.2); BASO % 0.4 % (0.0-2.0); EOS # 0.1 (0.0-0.7); EOS % 0.8 % (0-4.0); GRAN # 7.6 (1.4-6.5); GRAN % 66.4 % (42.2-75.2); HEMATOCRIT 40.5 % (37.0-47.0); HEMOGLOBIN 13.4 g/dl (12.5-16.0); LYMPH # 3.2 (1.2-3.4); LYMPH % 27.8 % (20.0-51.0); MEAN CELL VOLUME 86 fl (80.0-100.0); MEAN CORPUSCULAR HEMOGLOBIN 28 pg (27.0-31.0); MEAN CORPUSCULAR HGB CONC 33 g/dl (33.0-37.0); MEAN PLATELET VOLUME 10.8 fl (7.4-10.4); MONO # 0.5 (0.1-0.6); MONO % 4.3 % (1.7-9.3); PLATELET COUNT 289 K/mm3 (130-400); RED BLOOD COUNT 4.72 M/mm3 (4.10-5.30); REDCELL DISTRIBUTION WIDTH-CV 13.6 % (11.5-14.5)
[2019-05-23] MEDS ORDERED: TENORMIN 2525 MG/TAB PO (23:58)
[2019-05-24 00:04] LABS: ALANINE AMINOTRANSFERASE 7 U/L (9-52); ALBUMIN 4.4 gm/dL (3.5-5.0); ALKALINE PHOSPHATASE 81 U/L (50-136); ANION GAP 9 mmol/L (7-16); AST,SGOT 16 U/L (15-37); BILIRUBIN,TOTAL 0.5 mg/dL (0.0-1.0); BLOOD UREA NITROGEN 17 mg/dL (7-17); C-REACTIVE PROTEIN < 0.5 mg/dL (0.0-0.9); CALCIUM 8.9 mg/dL (8.4-10.2); CARBON DIOXIDE 25 mmol/L (22-30); CHLORIDE 105 mmol/L (98-107); CREATININE, serum 0.97 (0.52-1.25); GLUCOSE 106 mg/dL (74-106); POTASSIUM 4.1 mmol/L (3.4-5.0); SODIUM 138 mmol/L (137-145); TOTAL PROTEIN 7.5 gm/dL (6.4-8.2)
[2019-05-24 01:34] VITALS: BP 110/80; PULSE 77; TEMP 97.9
== END 2019-05-24 01:34 | disposition home or self-care (01) ==
LOC: COL.ER 23:23
PROVIDERS: Emergency Medicine
DX: N83.201 Unspecified ovarian cyst, right side (principal); E78.5 Hyperlipidemia, unspecified; Z90.89 Acquired absence of other organs; Z86.711 Personal history of pulmonary embolism; Z86.718 Personal history of other venous thrombosis and embolism
CPT/HCPCS: J1200; J1885; J2060; J2765; J3010; J7030; Q9967

== ENCOUNTER 2019-06-02 05:37 | Day surgery (SDC) | payer MEDICAID ==
[~2019-06-02] VITALS: Ht 165.1 cm; Wt 114.0 kg
[2019-06-02] VITALS (13 sets, daily range): BP systolic 96–135; BP diastolic 53–86; PULSE 74–101; TEMP 97.7–98.6
[~2019-06-02 05:37] MED LIST changes: -MAGNESIUM CHELA27 MG PO; +NATURAL MAGNES200 MG PO; +TENORMIN 2525 MG/TAB PO
[2019-06-02] MEDS ORDERED: PRIL40 PO (06:20)
[2019-06-02] MEDS ORDERED: ZOFRAN 4MG T4 MG/TAB PO (06:21)
[2019-06-02] MEDS ORDERED: ALBUTEROL0.83 MG/ML IH (06:22)
[2019-06-02] MEDS ORDERED: RELPAX 40MG TAB40 MG PO (06:23)
[2019-06-02] MEDS ORDERED: NORCO 325 MG-51 TAB PO (06:24)
[2019-06-03 03:45] VITALS: BP 95/45; PULSE 73
[2019-06-03 08:20] VITALS: BP 109/60; PULSE 74; TEMP 97.8
[2019-06-03] MEDS ORDERED: PERCOCET 325 MG1 TA3 PO (10:34)
[2019-06-03] MEDS ORDERED: ZOFRAN ODT8 MG PO (10:36)
[2019-06-03] MEDS ORDERED: PROMETHAZINE12.5 M5 PO (10:37)
[2019-06-03 10:41] LABS: HEMATOCRIT 38.2 % (37.0-47.0); HEMOGLOBIN 12.7 g/dl (12.5-16.0)
== END 2019-06-03 12:25 | disposition home or self-care (01) ==
LOC: SDCO 05:37 → OB 08:59 → SDCO 06-03 12:25
PROVIDERS: Obstetrics & Gynecology
DX: N83.11 Corpus luteum cyst of right ovary (principal); Z86.711 Personal history of pulmonary embolism; G43.909 Migraine, unspecified, not intractable, without status migrainosus; E03.9 Hypothyroidism, unspecified; E66.9 Obesity, unspecified; N80.9 Endometriosis, unspecified; N73.6 Female pelvic peritoneal adhesions (postinfective); N70.11 Chronic salpingitis; F32.9 Major depressive disorder, single episode, unspecified; F41.9 Anxiety disorder, unspecified; E44.1 Mild protein-calorie malnutrition; Z80.8 Family history of malignant neoplasm of other organs or systems; Z86.718 Personal history of other venous thrombosis and embolism; Z79.01 Long term (current) use of anticoagulants; Z85.828 Personal history of other malignant neoplasm of skin; Z90.49 Acquired absence of other specified parts of digestive tract
CPT/HCPCS: OP; J0690; J1100; J1170; J1885; J2270; J2405; J2550; J2704; J2710; J3010; J7120

== ENCOUNTER 2019-09-27 16:32 | Emergency (ER) | payer MEDICAID ==
[~2019-09-27] VITALS: Ht 167.6 cm; Wt 131.8 kg
[~2019-09-27 16:32] MED LIST changes: +ALBUTEROL0.83 MG/ML IH; +PROMETHAZINE12.5 M5 PO; +ZOFRAN ODT8 MG PO
[2019-09-27 17:33] LABS: COLLECTION METHOD CLEAN CATCH
[2019-09-27 17:41] LABS: BASO # 0.1 (0.0-0.2); BASO % 0.7 % (0.0-2.0); EOS # 0.1 (0.0-0.7); EOS % 1.1 % (0-4.0); GRAN # 5.8 (1.4-6.5); GRAN % 59.4 % (42.2-75.2); HEMATOCRIT 42.1 % (37.0-47.0); HEMOGLOBIN 13.6 g/dl (12.5-16.0); LYMPH # 3.3 (1.2-3.4); LYMPH % 33.6 % (20.0-51.0); MEAN CELL VOLUME 85 fl (80.0-100.0); MEAN CORPUSCULAR HEMOGLOBIN 28 pg (27.0-31.0); MEAN CORPUSCULAR HGB CONC 32 g/dl (33.0-37.0); MEAN PLATELET VOLUME 10.5 fl (7.4-10.4); MONO # 0.5 (0.1-0.6); MONO % 4.8 % (1.7-9.3); PLATELET COUNT 280 K/mm3 (130-400); RED BLOOD COUNT 4.95 M/mm3 (4.10-5.30); REDCELL DISTRIBUTION WIDTH-CV 13.4 % (11.5-14.5)
[2019-09-27 17:44] LABS: MUCOUS Present /lpf; PH 5 (5-8); SQUAMOUS EPITHELIAL 0-2 /hpf; URINE APPEARANCE Hazy; URINE BACTERIA None Seen /hpf; URINE BILIRUBIN Negative (NEGATIVE); URINE BLOOD 1+ (NEGATIVE); URINE COLOR Yellow; URINE GLUCOSE Negative (NEGATIVE); URINE KETONE Negative (NEGATIVE); URINE LEUKOCYTE ESTERASE Negative (NEGATIVE); URINE NITRATE Negative (NEGATIVE); URINE PROTEIN(semi-quant) Negative (NEGATIVE); URINE UROBILINOGEN Negative (NEGATIVE)
[2019-09-27 17:49] LABS: ALANINE AMINOTRANSFERASE 23 U/L (4-34); ALBUMIN 4.5 gm/dL (3.5-5.0); ALKALINE PHOSPHATASE 91 U/L (50-136); ANION GAP 10 mmol/L (7-16); AST,SGOT 28 U/L (15-37); BILIRUBIN,TOTAL 0.7 mg/dL (0.0-1.0); BLOOD UREA NITROGEN 15 mg/dL (7-17); CALCIUM 9.2 mg/dL (8.4-10.2); CARBON DIOXIDE 25 mmol/L (22-30); CHLORIDE 101 mmol/L (98-107); CREATININE, serum 0.87 (0.52-1.25); GLUCOSE 91 mg/dL (74-106); LIPASE 116 U/L (23-300); POTASSIUM 4.1 mmol/L (3.4-5.0); SODIUM 136 mmol/L (137-145)
[2019-09-27 17:50] LABS: C-REACTIVE PROTEIN < 0.5 mg/dL (0.0-0.9)
[2019-09-27 17:55] VITALS: BP 128/67; PULSE 74; TEMP 98
== END 2019-09-27 18:07 | disposition home or self-care (01) ==
LOC: COL.ER 16:32
PROVIDERS: Emergency Medicine
DX: R10.31 Right lower quadrant pain (principal); E78.5 Hyperlipidemia, unspecified; G43.909 Migraine, unspecified, not intractable, without status migrainosus; Z90.89 Acquired absence of other organs; Z90.49 Acquired absence of other specified parts of digestive tract; Z86.718 Personal history of other venous thrombosis and embolism; Z86.711 Personal history of pulmonary embolism; Z79.01 Long term (current) use of anticoagulants
CPT/HCPCS: J1790; J7030

== ENCOUNTER 2019-09-29 07:08 | Day surgery (SDC) | payer MEDICAID ==
[~2019-09-29] VITALS: Ht 165.1 cm; Wt 120.3 kg
[2019-09-29] VITALS (12 sets, daily range): BP systolic 111–149; BP diastolic 58–87; PULSE 65–113; TEMP 97.9–99.4
[2019-09-29] MEDS ORDERED: FOLIC ACID 11 MG/TA1 PO (08:18)
[2019-09-29] MEDS ORDERED: SYNTHROID0.1 MG/TAB PO (08:18)
[2019-09-29] MEDS ORDERED: VITAMIN B225 MG PO (08:19)
[2019-09-29] MEDS ORDERED: MAGNESIUM ELEME30 MG PO (08:19)
[2019-09-29] MEDS ORDERED: PRIL40 PO (08:20)
[2019-09-29] MEDS ORDERED: PRAVACHOL 40MG40 MG PO (08:20)
[2019-09-29] MEDS ORDERED: PHARMASSURE ZIN50 MG PO (08:21)
[2019-09-29] MEDS ORDERED: CELEXA 20MG20 MG/TAB PO (08:21)
[2019-09-29] MEDS ORDERED: AMBIEN 10MG10 MG PO (08:21)
[2019-09-29] MEDS ORDERED: ZOFRAN8 MG PO (08:23)
[2019-09-29] MEDS ORDERED: TENORMIN 2525 MG/TAB PO (08:23)
[2019-09-29] MEDS ORDERED: VALIUM 5MG T5 MG/TAB PO (08:24)
[2019-09-29] MEDS ORDERED: RELPAX 40MG TAB40 MG PO (08:24)
[2019-09-29] MEDS ORDERED: PERCOCET 325 MG1 TA2 PO (08:24)
--- NOTE | 2019-09-29 08:47 | NUR ---
Patient is escorted to the restroom by staff, voids, and returns to room.
--- NOTE | 2019-09-29 09:02 | NUR ---
Dr. Moreno is at the bedside at this time, talking with the patient pre-op.
--- NOTE | 2019-09-29 09:07 | NUR ---
Patient to the OR with DENVER Costello at this time.
--- NOTE | 2019-09-29 13:35 | NUR ---
1335- Pt to room, VSS. Pt verbalizes severe pain, laying with eyes closed, visually tense and mildly crying. This RN out of room to review EMAR and see about Pain medication. 1340- 4 incision sites noted, no active bleeding or drainage noted. Pt very upset, hysterically crying because she was told she would not come to the OB floor after surgery. Pt encouraged to slow breathing and calm down. She states she spoke to the "head nurse" at the [facility] and they promised her she would go to med/surg. This RN appoligizes repeatedly for not knowing this information. Dr Moreno is on her way to the hospital and this RN will discuss moving to different floor and options for pain control. Pt and spouse appreciative. Pt continues to cry, spouse at bedside, very supportive. 1345- Dr Moreno on unit, updated on Pt status and wishes. MD verbalizes she had no idea of Pts desire to move to another floor. Gave verbal order to coordinate with powerhouse mechanic supervisor about transfering to med/surg and also may give additional dose of ordered Dilaudid now. 1350- Tara, Credit Representative notified and plan to transfer Pt to 322. 1410- Report given to DENVER Key from surgical unit. 1415- Pt transfered off unit via bed by this RN and Kacy Little RN.
--- NOTE | 2019-09-29 15:38 | NUR ---
Patient received from Danielle in Ob. Patient went to bathroom upon arrival to the floor, but she was unable to void. mesh underwear & pad provided. She reports some bleeding. Patient is very emotional. Requesting migraine medication. We do not have her home dose, called Dr. Moreno & [facility] substitution, imitrex. Patient wanting what ever pain medication she can have. Percoet & Imitrex given. Kpad provided for her back. Cold pack for her headache. Zofran for nausea. Cracker provided. Vss on O2, she de sats when sleeping. Her supportive significant other at bedside. scds ble.
--- NOTE | 2019-09-29 19:23 | NUR ---
Patient has had significant nausea and vomiting with bile emesis. notified & orders obtained. Phenergan given per orders. Patient significant other attentive at bedside. Ivf to Nirmala. Scds ble. She was able to void a small amount. Second dose of medication given for persistant migriane. Report to Jenny GOFF
--- NOTE | 2019-09-29 20:00 | NUR ---
Report received, assumed care for night clerk. Assessment complete. VS stable. Has been very nauseated/vomitting off and on-has received zofran and phenergan-phenergan seems to be helping more. C/O pain-rating 11/09 to groin area-described as a constant ache with intermittent burning. Dilaudid given per dr order. Lap sites to abdomen x4-pham set. IV to left hand with LR@125ml/hr. Denies shortness of breath. Denies questions/concerns. Call light in reach. Will monitor.
--- NOTE | 2019-09-29 22:00 | NUR ---
Called with c/o pain to abdomen/groin. Rating pain 7/10 on pain scale-described as throbbing. Dilaudid given per dr malin. WIll monitor.
[2019-09-30 00:34] VITALS: BP 155/73; PULSE 98; TEMP 98
[2019-09-30 03:00] VITALS: BP 131/64; PULSE 90; TEMP 98
--- NOTE | 2019-09-30 04:20 | NUR ---
Has had several episodes this shift of emesis. Rotating IV zofran/phenergan regularly. Has not tolerated much PO. IV fluids continue-LR@125ml/hr. Pain has been adequately controlled with IV dilaudid-attempt made at PO pain meds-vomitted. Discussed trying PO pain meds again later this AM. Voiding. Denies needs. Call light in reach. Will monitor.
--- NOTE | 2019-09-30 07:33 | NUR ---
PATIENT CALLED OUT TO THE DESK REQUESTING PAIN, NAUSEA AND MIGRAINE MEDICATION. MEDICATIONS GIVEN. PATIENT ASSESSMENT COMPLETE. PATIENT IS A&OX4. SHALLOW BREATHING NOTED. VSS. PATIENT DENIES SOB OR A PRODUCTIVE COUGH. BOWEL SOUNDS ACTIVE ALL FOUR QUADRANTS. ABDOMINAL LAP SITES X4 LENS GAUGER WITH PASCUAL SET IN PLACE AND EDGES WELL APPROXIMATED. PATIENT TOLERATING LIQUIDS AND SMALL AMOUNTS OF FOOD WITH SOME NAUSEA. PATIENT STATES THAT THIS IS NORMAL FOR HER POST-OP. AT THE BEDSIDE. CALL LIGHT WITHIN REACH. NO OTHER NEEDS AT THIS TIME.
[2019-09-30 08:14] VITALS: BP 137/112; PULSE 86; TEMP 97.6
[2019-09-30] MEDS ORDERED: ZOFRAN8 MG PO (08:37)
--- NOTE | 2019-09-30 09:37 | NUR ---
PATIENT CALLED OUT AND STATED THAT SHE FEELS BETTER AFTER THE NAUSEA MEDICATION AND FEELS LIKE SHE CAN TAKE A PO PAIN PILL. PATIENT GIVEN PRN PERCOCET AT THIS TIME. WILL CONTINUE TO MONITOR.
--- NOTE | 2019-09-30 11:36 | NUR ---
PATIENT SAT UP AT THE EDGE OF THE BED AND IN THE BEDSIDE CHAIR THIS AM AFTER TAKING THE PO PAIN MEDICATION. PATIENT REPORTS THAT HER PAIN HAS IMPROVED SIGNIFICANTLY AFTER SWITCHING TO THE ORAL PAIN PILLS. PATIENT REQUESTED NAUSEA MEDICATION. PRN PHENERGAN GIVEN AT THIS TIME.
--- NOTE | 2019-09-30 12:21 | NUR ---
LEFT HAND INT DISCONTINUED PER PENDING DISCHARGE. TIP INTACT. PATIENT TOLERATED WELL. DISCHARGE INSTRUCTIONS REIVIEWED WITH PATIENT AND . QUESTIONS SOUGHT. PATIENT AND DENY ANY QUESTIONS AT THIS TIME. PATIENT PERSONAL BELONGINGS GATHERED.
--- NOTE | 2019-09-30 12:32 | NUR ---
PATIENT TAKEN TO PERSONAL VEHICLE VIA WHEELCHAIR BY SURGICAL STAFF. PATIENT DISCHARGED.
--- NOTE | 2019-09-30 13:42 | NUR ---
Welfare Aide stopped by and offered prayer and support with patient before discharge.
== END 2019-09-30 12:32 | disposition home or self-care (01) ==
LOC: SDCO 07:08 → SURG 14:13 → SDCO 09-30 12:32
DX: R10.2 Pelvic and perineal pain (principal); N80.9 Endometriosis, unspecified; N73.6 Female pelvic peritoneal adhesions (postinfective); N70.11 Chronic salpingitis; D68.59 Other primary thrombophilia; I10 Essential (primary) hypertension; E03.9 Hypothyroidism, unspecified; G43.909 Migraine, unspecified, not intractable, without status migrainosus; F32.9 Major depressive disorder, single episode, unspecified; R00.2 Palpitations; G47.00 Insomnia, unspecified; E66.01 Morbid (severe) obesity due to excess calories; F41.9 Anxiety disorder, unspecified; Z86.711 Personal history of pulmonary embolism; Z86.718 Personal history of other venous thrombosis and embolism; Z79.01 Long term (current) use of anticoagulants; Z85.820 Personal history of malignant melanoma of skin; Z97.5 Presence of (intrauterine) contraceptive device; Z87.42 Personal history of other diseases of the female genital tract; Z79.899 Other long term (current) drug therapy; Z91.041 Radiographic dye allergy status
CPT/HCPCS: OP; A4314; J0690; J1170; J1885; J2405; J2550; J2704; J2710; J3010; J7120

== ENCOUNTER 2019-12-25 12:34 | Emergency (ER) | payer MEDICAID ==
[~2019-12-25] VITALS: Ht 167.6 cm; Wt 118.2 kg
[~2019-12-25 12:34] MED LIST changes: +MAGNESIUM ELEME30 MG PO; +PHARMASSURE ZIN50 MG PO; +VITAMIN B225 MG PO; +ZOFRAN8 MG PO
[2019-12-25 12:44] VITALS: TEMP 99.1
[2019-12-25 14:08] LABS: BASO # 0.1 (0.0-0.2); BASO % 0.6 % (0.0-2.0); EOS # 0.1 (0.0-0.7); EOS % 1.5 % (0-4.0); GRAN % 64.5 % (42.2-75.2); HEMATOCRIT 40.6 % (37.0-47.0); HEMOGLOBIN 12.5 g/dl (12.5-16.0); LYMPH # 2.8 (1.2-3.4); LYMPH % 29.6 % (20.0-51.0); MEAN CELL VOLUME 80 fl (80.0-100.0); MEAN CORPUSCULAR HEMOGLOBIN 25 pg (27.0-31.0); MEAN CORPUSCULAR HGB CONC 31 g/dl (33.0-37.0); MEAN PLATELET VOLUME 10.9 fl (7.4-10.4); MONO # 0.3 (0.1-0.6); MONO % 3.4 % (1.7-9.3); PLATELET COUNT 303 K/mm3 (130-400); REDCELL DISTRIBUTION WIDTH-CV 13.9 % (11.5-14.5)
[2019-12-25 14:12] LABS: ALANINE AMINOTRANSFERASE 21 U/L (4-34); ALBUMIN 4.2 gm/dL (3.5-5.0); ALKALINE PHOSPHATASE 101 U/L (50-136); ANION GAP 11 mmol/L (7-16); AST,SGOT 30 U/L (15-37); BILIRUBIN,TOTAL 0.7 mg/dL (0.0-1.0); BLOOD UREA NITROGEN 11 mg/dL (7-17); CALCIUM 9.2 mg/dL (8.4-10.2); CARBON DIOXIDE 23 mmol/L (22-30); CHLORIDE 103 mmol/L (98-107); CREATININE, serum 0.79 (0.52-1.25); GLUCOSE 94 mg/dL (74-106); POTASSIUM 4.2 mmol/L (3.4-5.0); SODIUM 137 mmol/L (137-145); TOTAL PROTEIN 7.6 gm/dL (6.4-8.2)
[2019-12-25 14:21] LABS: COLLECTION METHOD CLEAN CATCH
[2019-12-25 14:31] LABS: TROPONIN-I < 0.012 ng/mL (0.000-0.035)
[2019-12-25 14:44] LABS: MUCOUS Present /lpf; PH 5 (5-8); URINE APPEARANCE Hazy; URINE BACTERIA Rare /hpf; URINE BILIRUBIN Negative (NEGATIVE); URINE BLOOD 1+ (NEGATIVE); URINE COLOR Yellow; URINE GLUCOSE Negative (NEGATIVE); URINE KETONE Negative (NEGATIVE); URINE LEUKOCYTE ESTERASE Negative (NEGATIVE); URINE NITRATE Negative (NEGATIVE); URINE PROTEIN(semi-quant) Negative (NEGATIVE); URINE UROBILINOGEN Negative (NEGATIVE)
[2019-12-25] MEDS ORDERED: ZITHROMAX Z PA250 MG PO (16:47)
[2019-12-25] MEDS ORDERED: ALBUTEROL0.83 MG/ML IH (17:09)
[2019-12-25] MEDS ORDERED: PREDNISONE20 MG PO (17:11)
[2019-12-25 17:35] VITALS: BP 110/74; PULSE 82
== END 2019-12-25 17:43 | disposition home or self-care (01) ==
LOC: COL.ER 12:34
PROVIDERS: Physician Assistant
DX: J20.9 Acute bronchitis, unspecified (principal); R07.89 Other chest pain; Z90.710 Acquired absence of both cervix and uterus; Z90.49 Acquired absence of other specified parts of digestive tract; Z90.89 Acquired absence of other organs; Z79.01 Long term (current) use of anticoagulants
CPT/HCPCS: J1100; J1170; J1885; J2060; J2405; J7030

== ENCOUNTER 2020-01-04 15:57 | Emergency (ER) | payer MEDICAID ==
[~2020-01-04] VITALS: Ht 165.1 cm; Wt 118.2 kg
[~2020-01-04 15:57] MED LIST changes: +ZITHROMAX Z PA250 MG PO
[2020-01-04 16:02] VITALS: BP 119/80; TEMP 97.4
[2020-01-04 16:43] LABS: COLLECTION METHOD CLEAN CATCH
[2020-01-04 16:46] LABS: HEMOGLOBIN 12.3 g/dl (12.5-16.0); MEAN CELL VOLUME 79 fl (80.0-100.0); MEAN CORPUSCULAR HEMOGLOBIN 25 pg (27.0-31.0); MEAN CORPUSCULAR HGB CONC 32 g/dl (33.0-37.0); MEAN PLATELET VOLUME 10.4 fl (7.4-10.4); PLATELET COUNT 320 K/mm3 (130-400); RED BLOOD COUNT 4.94 M/mm3 (4.10-5.30); REDCELL DISTRIBUTION WIDTH-CV 14.6 % (11.5-14.5)
[2020-01-04 16:53] LABS: MUCOUS Present /lpf; PH 5 (5-8); SQUAMOUS EPITHELIAL 0-2 /hpf; URINE APPEARANCE Clear; URINE BACTERIA None Seen /hpf; URINE BILIRUBIN Negative (NEGATIVE); URINE BLOOD Negative (NEGATIVE); URINE COLOR Yellow; URINE GLUCOSE Negative (NEGATIVE); URINE KETONE Negative (NEGATIVE); URINE LEUKOCYTE ESTERASE Negative (NEGATIVE); URINE NITRATE Negative (NEGATIVE); URINE PROTEIN(semi-quant) Negative (NEGATIVE); URINE RBC 0-2 /hpf; URINE UROBILINOGEN Negative (NEGATIVE)
[2020-01-04 17:01] LABS: ALBUMIN 4.2 gm/dL (3.5-5.0); BILIRUBIN,TOTAL 0.8 mg/dL (0.0-1.0); C-REACTIVE PROTEIN 1.2 mg/dL (0.0-0.9); CALCIUM 9.1 mg/dL (8.4-10.2); CREATININE, serum 1.08 (0.52-1.25); TOTAL PROTEIN 7.5 gm/dL (6.4-8.2)
[2020-01-04 17:34] LABS: ANISOCYTOSIS 1+; BAND 1 % (0-10); EOSINOPHIL 1 % (0-4); LYMPHOCYTE 40 % (20.0-51.0); NEUTROPHILS 53 % (42.0-75.2); PLATELET ESTIMATE NORMAL (NORMAL)
[2020-01-04] MEDS ORDERED: FLAGYL500 MG PO (18:24)
[2020-01-04] MEDS ORDERED: DOXYCYCLINE 10100 MG PO (18:24)
[2020-01-04] MEDS ORDERED: PERCOCET 325 MG1 TA2 PO ×2 (18:25→18:26)
[2020-01-04 19:45] VITALS: PULSE 90
== END 2020-01-04 19:45 | disposition home or self-care (01) ==
LOC: COL.ER 15:57
PROVIDERS: Family Medicine
DX: N73.9 Female pelvic inflammatory disease, unspecified (principal); Z90.711 Acquired absence of uterus with remaining cervical stump; Z79.01 Long term (current) use of anticoagulants
CPT/HCPCS: J0696; J1170; J1885; J2405; J2550; J7120

== ENCOUNTER 2020-01-06 11:19 | Emergency (ER) | payer MEDICAID ==
[~2020-01-06] VITALS: Ht 167.6 cm; Wt 118.2 kg
[2020-01-06 11:38] VITALS: BP 129/81; TEMP 97.8
[2020-01-06 12:40] LABS: BASO % 0.4 % (0.0-2.0); EOS # 0.2 (0.0-0.7); EOS % 2.7 % (0-4.0); GRAN # 4.1 (1.4-6.5); GRAN % 57.6 % (42.2-75.2); HEMOGLOBIN 10.9 g/dl (12.5-16.0); LYMPH # 2.3 (1.2-3.4); LYMPH % 33.1 % (20.0-51.0); MEAN CELL VOLUME 80 fl (80.0-100.0); MEAN CORPUSCULAR HEMOGLOBIN 25 pg (27.0-31.0); MEAN CORPUSCULAR HGB CONC 31 g/dl (33.0-37.0); MEAN PLATELET VOLUME 10.5 fl (7.4-10.4); MONO # 0.4 (0.1-0.6); MONO % 5.3 % (1.7-9.3); PLATELET COUNT 235 K/mm3 (130-400); RED BLOOD COUNT 4.42 M/mm3 (4.10-5.30); REDCELL DISTRIBUTION WIDTH-CV 14.7 % (11.5-14.5)
[2020-01-06 12:42] LABS: HEMATOCRIT 35.4 % (37.0-47.0)
[2020-01-06 12:51] LABS: C-REACTIVE PROTEIN 2.2 mg/dL (0.0-0.9); CALCIUM 8.2 mg/dL (8.4-10.2); CREATININE, serum 0.95 (0.52-1.25); POTASSIUM 3.8 mmol/L (3.4-5.0)
[2020-01-06 14:22] LABS: COLLECTION METHOD CLEAN CATCH
[2020-01-06 14:32] LABS: MUCOUS Present /lpf; PH 5 (5-8); SQUAMOUS EPITHELIAL 0-2 /hpf; URINE APPEARANCE Clear; URINE BACTERIA Rare /hpf; URINE BILIRUBIN Negative (NEGATIVE); URINE BLOOD Negative (NEGATIVE); URINE COLOR Yellow; URINE GLUCOSE Negative (NEGATIVE); URINE KETONE Negative (NEGATIVE); URINE LEUKOCYTE ESTERASE Negative (NEGATIVE); URINE NITRATE Negative (NEGATIVE); URINE PROTEIN(semi-quant) Negative (NEGATIVE); URINE RBC 0-2 /hpf; URINE UROBILINOGEN Negative (NEGATIVE)
[2020-01-06] MEDS ORDERED: PHENERGAN 25 TA25 MG PO (14:40)
[2020-01-06 14:58] VITALS: PULSE 95
== END 2020-01-06 14:58 | disposition home or self-care (01) ==
LOC: COL.ER 11:19
PROVIDERS: Emergency Medicine
DX: N83.201 Unspecified ovarian cyst, right side (principal); Z90.49 Acquired absence of other specified parts of digestive tract; Z90.710 Acquired absence of both cervix and uterus; Z90.721 Acquired absence of ovaries, unilateral; Z88.6 Allergy status to analgesic agent; Z79.52 Long term (current) use of systemic steroids; Z79.01 Long term (current) use of anticoagulants
CPT/HCPCS: J0780; J1170; J1200; J1885; J2060; J2930; J7030; Q9967

== ENCOUNTER 2020-01-13 21:01 | Emergency (ER) | payer MEDICAID ==
[~2020-01-13] VITALS: Ht 167.6 cm; Wt 118.2 kg
[2020-01-13 21:08] VITALS: TEMP 97.8
[2020-01-13 21:35] VITALS: BP 122/78; PULSE 80
== END 2020-01-13 21:35 | disposition home or self-care (01) ==
LOC: COL.ER 21:01
DX: M79.662 Pain in left lower leg (principal); Z86.718 Personal history of other venous thrombosis and embolism; Z86.711 Personal history of pulmonary embolism; Z79.01 Long term (current) use of anticoagulants

== ENCOUNTER → 2020-01-29 | Outpatient (CLI) | payer MEDICAID | LOC: ZCOL.LAB 14:36 | DX: Z20.828 Contact with and (suspected) exposure to other viral communicable diseases (principal) ==

== ENCOUNTER 2020-03-28 12:44 | Emergency (ER) | payer MEDICAID ==
[~2020-03-28] VITALS: Ht 167.6 cm; Wt 115.9 kg
[2020-03-28 12:49] VITALS: TEMP 97.1
[2020-03-28 14:00] LABS: BASO # 0.1 (0.0-0.2); BASO % 0.6 % (0.0-2.0); EOS # 0.3 (0.0-0.7); EOS % 3.2 % (0-4.0); GRAN # 6.4 (1.4-6.5); GRAN % 67.5 % (42.2-75.2); HEMATOCRIT 40.1 % (37.0-47.0); HEMOGLOBIN 12.7 g/dl (12.5-16.0); LYMPH # 2.3 (1.2-3.4); LYMPH % 24.1 % (20.0-51.0); MEAN CELL VOLUME 79 fl (80.0-100.0); MEAN CORPUSCULAR HEMOGLOBIN 25 pg (27.0-31.0); MEAN CORPUSCULAR HGB CONC 32 g/dl (33.0-37.0); MEAN PLATELET VOLUME 10.6 fl (7.4-10.4); MONO # 0.4 (0.1-0.6); MONO % 4.3 % (1.7-9.3); PLATELET COUNT 288 K/mm3 (130-400); RED BLOOD COUNT 5.11 M/mm3 (4.10-5.30); REDCELL DISTRIBUTION WIDTH-CV 14.9 % (11.5-14.5)
[2020-03-28 14:08] LABS: INR 1.3 (0.8-3.0); PROTHROMBIN TIME 14.7 SECONDS (9.7-12.8)
[2020-03-28 14:15] LABS: ALBUMIN 4.5 gm/dL (3.5-5.0); BILIRUBIN,TOTAL 0.7 mg/dL (0.0-1.0); CALCIUM 8.8 mg/dL (8.4-10.2); CREATININE, serum 0.86 (0.52-1.25); POTASSIUM 4.1 mmol/L (3.4-5.0); TOTAL PROTEIN 7.6 gm/dL (6.4-8.2)
[2020-03-28 16:00] VITALS: BP 151/89; PULSE 110
== END 2020-03-28 16:12 | disposition home or self-care (01) ==
LOC: COL.ER 12:44
PROVIDERS: Nurse Practitioner
DX: J20.9 Acute bronchitis, unspecified (principal); Z20.828 Contact with and (suspected) exposure to other viral communicable diseases; Z88.8 Allergy status to other drugs, medicaments and biological substances; Z79.01 Long term (current) use of anticoagulants; Z79.52 Long term (current) use of systemic steroids

== ENCOUNTER 2020-08-08 13:28 | Inpatient (IN) | payer MEDICAID ==
[~2020-08-08] VITALS: Ht 165.1 cm; Wt 113.0 kg
[2020-08-20] VITALS (9 sets, daily range): BP systolic 96–131; BP diastolic 53–98; PULSE 83–95; TEMP 97.4–97.7
--- NOTE | 2020-08-20 12:15 | NUR ---
The patient ambulated back to [place] [facility] independently using a steady gait and appeared to tolerate the activity well. Vital signs obtained. Consent signed. Nurse attempted to start the patient's IV in her left arm x2. Anesthesia notified and will attempt IV start prior to her block in the PACU holding area. The patient answered yes to the one of the suicide risk questions but states it was in the past when she was on two different prescription medications. She states she no longer is on the those medications and has a good support symtem now. The patient's fiance is going to take her belongings with him including her cellphone. Call light is within reach. Will continue to monitor the patient.
[2020-08-20] MEDS ORDERED: SYNTHROID0.125 MG/T PO (12:28)
[2020-08-20] MEDS ORDERED: MAG-OX 400400 MG/TAB PO (12:28)
[2020-08-20] MEDS ORDERED: TOPAMAX50 MG PO (12:33)
--- NOTE | 2020-08-20 16:48 | NUR ---
PATIENT ARRIVED TO ROOM 330 VIA BED FROM PACU. PATIENT IS DROWSY FROM SURGERY BUT A&O. VSS. SHIFT ASSESSMENT COMPLETED AT THIS TIME. CHEST INCISION SITE JOVANNI WITH EDGES WELL APPROXIMATED. ABDOMINAL LAP SITES X5 JOVANNI WITH EDGES WELL APPROXIMATED. BOWEL SOUNDS HYPOACTIVE. PATIENT TOLERATING CLEAR LIQUIDS. SCD'S TO BLE. PRESENT AT THE BEDSIDE. CALL LIGHT WITHIN REACH. WILL CONTINUE TO MONITOR.
--- NOTE | 2020-08-20 17:30 | NUR ---
PATIENT GIVEN IV AND PO PAIN MEDICATION AT THIS TIME. PATIENT REPORTING INTENSE ABDOMINAL PAIN. PATIENT STATES THAT SHE DOESN'T BELIEVE THAT THE BLOCK WORKED, AND THAT HER ABDOMINAL PAIN IS WORSE THAN HER PREVIOUS ABDOMINAL SURGERIES. CONTACTED AND UPDATED ON PATIENT STATUS. AWARE AND STATES THAT HE FULLY EXPECTS THE PATIENT TO NEED TO USE ORDERED PAIN MEDICATIONS. PATIENT EDUCATED ON LAPAROSCOPIC SURGERIES, GAS PAIN AND ERAS PROTOCOL. WILL CONTINUE TO MONITOR.
--- NOTE | 2020-08-20 18:33 | NUR ---
PATIENT REPORTING THAT THE PAIN IS IMPROVING WITH THE PRN MEDICATIONS. WILL REPORT OFF TO ONCOMING NURSE.
--- NOTE | 2020-08-20 19:35 | NUR ---
Patient complaining of level 8 pain to abdomen, and nausea. Given PRN Morphine and Zofran as requested at this time.
--- NOTE | 2020-08-20 20:45 | NUR ---
Patient assessed at this time. Patient rating pain at a 6 at this time. Given scheduled Toradol and PRN Ultram for pain at this time. Peripheral IV to left AC. Site without redness, warmth, swelling, and pain. Denies having SOB and dyspnea, except with exertion. On oxygen at 2 L/min via NC. Repirations even and unlabored. LS CTA in upper lobes, diminished in lower. HRR. Capillary refill less than 3 seconds. Non-tenting skin turgor. Pain to abdomen continues. Given pillow to brace against abdomen when moving/cough. Surgical site to chest CDI, 5 lap sites to abdomen CDI. Patient ambulated to bathroom. Slow steady gait. Able to urinate. Has been drinking some fluids, but has nausea. 1+ edema BLE. SCDs on. Voices no further questions, needs, or concerns at this time. Resting in bed with call light within reach.
--- NOTE | 2020-08-20 21:00 | NUR ---
Patient complaining of nausea still. Given PRN Phenergan at this time.
--- NOTE | 2020-08-20 23:14 | NUR ---
Patient complaining of level 7 pain to abdomen. Given PRN Roxicodone and scheduled APAP. Patient requested PRN Morphine as well. This nurse told patient to give the oral medications a try and to call this nurse if it is not effective around midnight, and will given PRN Morphine if it does work by then. Voiced understanding.
[2020-08-21] VITALS (7 sets, daily range): BP systolic 97–122; BP diastolic 56–74; PULSE 74–91; TEMP 97.6–98.6
--- NOTE | 2020-08-21 00:40 | NUR ---
Patient given PRN Morphine as requested at this time.
--- NOTE | 2020-08-21 03:00 | NUR ---
Patient given scheduled toradol, as well as PRN Ultram and Zofran as requested.
--- NOTE | 2020-08-21 03:50 | NUR ---
Continues to have level 7 pain to abdomen. Given PRN Morphine for pain at this time.
--- NOTE | 2020-08-21 05:03 | NUR ---
Patient has received pain medications as requested and ordered during the night. See MAR. Patient has been able to get up and walk to the bathroom. Reports belching, but not passing any rectal gas at this time. Has received medications for nausea as requested and ordered. Continues on clear liquid diet. Resting in bed with call light within reach.
[2020-08-21 07:32] LABS: BASO % 0.2 % (0.0-2.0); EOS % 0.1 % (0-4.0); GRAN # 10.3 (1.4-6.5); GRAN % 79.5 % (42.2-75.2); HEMATOCRIT 38.5 % (37.0-47.0); HEMOGLOBIN 11.9 g/dl (12.5-16.0); LYMPH # 1.9 (1.2-3.4); LYMPH % 14.3 % (20.0-51.0); MEAN CELL VOLUME 83 fl (80.0-100.0); MEAN CORPUSCULAR HEMOGLOBIN 26 pg (27.0-31.0); MEAN CORPUSCULAR HGB CONC 31 g/dl (33.0-37.0); MEAN PLATELET VOLUME 10.8 fl (7.4-10.4); MONO # 0.7 (0.1-0.6); MONO % 5.3 % (1.7-9.3); PLATELET COUNT 316 K/mm3 (130-400); RED BLOOD COUNT 4.63 M/mm3 (4.10-5.30); REDCELL DISTRIBUTION WIDTH-CV 14.8 % (11.5-14.5)
[2020-08-21 07:41] LABS: CALCIUM 8.6 mg/dL (8.4-10.2); CREATININE, serum 0.91 (0.52-1.25); MAGNESIUM 2.1 mg/dL (1.6-2.3); PHOSPHOROUS 3.1 mg/dL (2.5-4.5); POTASSIUM 3.8 mmol/L (3.4-5.0)
--- NOTE | 2020-08-21 10:30 | NUR ---
Patient is very anxious and upset about her pain control. She has been getting what she can have, when she can have it. She got upset when I was in doing her assessment because I explained she needs to get up and walk 4 times today. She was upset because she felt like no one explained this to her. Explained the ERAS protcol and how it is supposed to work. She verbalized understanding. Discussed pain medications ordered and how often she can have them. When walking in with her medications she stated give me everything I can have, morphine, phenergan, zofran, ariana, whatever. Explained that if she gets all her medications at the same time she will no have any other options. She verbalized understanding. No other changes at this time. Call light within reach.
--- NOTE | 2020-08-21 13:30 | NUR ---
Dr Cavazos has ordered a TOLL MECHANIC for patient. Went to start the TOLL MECHANIC and her IV had infiltrated. Attempted to start a new IV but was not able to get an IV. Call Jihan from [facility]'s, she did not get one either. Dr Cavazos ordered a PICC line. When Jihan and this nurse was speaking with the patient about the PICC she became upset because we had spoken with about her partner not being able stay the night again. She stated she would not stay without him. She also stated she did not like the way Jihan spoke with her. She wanted someone else, exlained that there is no one else to do it. Jihan was plesent with patient and was only trying to explain the need for the PICC line to the patient. Patient is wanting to think about getting the line place and speak with her partner.
--- NOTE | 2020-08-21 14:30 | NUR ---
Patient is not giving us ab answer about getting the PICC line. She keeps threatening to leave if she doesn't get her way about her staying and someone else placing the line. Explained that only Jihan can do it. She call her doctor's office to ask what they thought she should do and they asked what Dr Cavazos thinks she should do. Explained that Jihan will be leaving for the day soon. No other changes at this time. Call light within reach.
--- NOTE | 2020-08-21 15:30 | NUR ---
Patient finally agreed to getting the PICC. Explained that this make her stay better becuase she will not have to be stuck for lab draws and she can get her pain medications as needed. Jihan placed the PICC line. Got the patient hooked up to the ACCOUNTING SYSTEM EXPERT. Restarted IVF's at 75ml/hr as ordered. No other changes at this time. Call light toshia mendoza.
--- NOTE | 2020-08-21 16:15 | NUR ---
Lead Mobile Developer met with patient to discuss discharge planning. Patient's Robin harper (ph#[phone]) is at bedside. Patient lives in [place] with Robin and states they have not been able to get due to COVID. Patient sees Dr. James for primary care and obtains medications from [facility] in with no difficulties. Patient occasionally uses a cane and has a nebulizer at home. Patient is independent with ADLS and plans to return home upon discharge. Patient does not currently have Advance Directives but is interested in completing DPOA-HC. Patient verbalized understanding of DPOA-HC and used the example of if she were in a coma, she would want Robin to make her medical decisions. Patient designated Robin and no one else. JENNIFER and JENNIFER Valdez provided signature. Patient asked if appointing Robin as DPOA-HC would mean he could stay overnight. SW advised that appointing DPOA-HC does not affect the current visitation policies and patient verbalized understanding. Discharge Plan: Home with meredith.
--- NOTE | 2020-08-21 19:00 | NUR ---
Patient is doing much better since getting the SALES ACCOUNT COORDINATOR and PICC line. Her pain seems better and she stated her pain is down to about a 2 on 0-10 scale. She had some nausea earlier, phenergan given. She is getting up to walk again in the hallways. No other changes at this time. Call light within reach.
--- NOTE | 2020-08-21 22:43 | NUR ---
ALERT AND OX 4. RATING PAIN 4/10 NOW THAT IS ON RESIDENTIAL SALES CONSULTANT DILUADID. APPEARS TO BE GROGGY AT ASSESSMENT AND C/O NAUSEA. MEDS GIVEN, HELD AMBIEN AND BP MED DUE TO SEDATION AND BP. TOLERATING FULL LIQ DIET. PICC TO RT UPPER ARM FLUSHED W GOOD BLOOD RETURN. UP TO AMBULATE IN HALLS W SPOUSE , STEADY ON FEET. ORDERS REVIEWED. POC DISCUSSED. NEEDS MET. CALL LIGHT WI REACH. BED LOW.
[2020-08-22] VITALS (12 sets, daily range): BP systolic 93–110; BP diastolic 44–62; PULSE 69–85; TEMP 96.8–98.7
--- NOTE | 2020-08-22 03:20 | NUR ---
PT WAKES AFTER 3 HRS OF SLEEP TO PAIN. DIDNT THINK BROACH OPERATOR WAS WORKING, EXPLAINED TO PT SHE HAD TO PUSH IT WHEN IN PAIN AND THAT SHE MAY HAVE SOME CATCHING UP TO DO . OXYCODONE AND SCHEDULED TORADOL GIVEN AT THIS TIME. ZOFRAN FOR NAUSEA. AFTER PUSHING BROACH OPERATOR BUTTON SHE NOTICES SOME RELIEF.
--- NOTE | 2020-08-22 04:39 | NUR ---
RESTING PERIODCALLY OVERNIGHT. GRINDER AND HONER OPERATOR AUTOMATIC WORKING FOR PAIN CONTROL. SCHEDULED TORADOL AND TYL GIVEN. LIU FOR BREAKTHRU IN MIDDLE OF NIGHT WHEN PT WAKES AND FEELS LIKE HAD CATCHING UP TO DO. BP SOFT. MONITORING. AT BEDSIDE AND VERY HELPFUL WITH CARES.
[2020-08-22 07:30] LABS: BASO % 0.4 % (0.0-2.0); EOS # 0.3 (0.0-0.7); EOS % 3.1 % (0-4.0); GRAN # 5.7 (1.4-6.5); GRAN % 58.1 % (42.2-75.2); HEMOGLOBIN 10.8 g/dl (12.5-16.0); LYMPH # 3.1 (1.2-3.4); MEAN CELL VOLUME 84 fl (80.0-100.0); MEAN CORPUSCULAR HEMOGLOBIN 26 pg (27.0-31.0); MEAN CORPUSCULAR HGB CONC 31 g/dl (33.0-37.0); MEAN PLATELET VOLUME 10.9 fl (7.4-10.4); MONO # 0.6 (0.1-0.6); MONO % 5.9 % (1.7-9.3); PLATELET COUNT 242 K/mm3 (130-400); RED BLOOD COUNT 4.14 M/mm3 (4.10-5.30)
[2020-08-22 07:40] LABS: HEMATOCRIT 34.9 % (37.0-47.0)
[2020-08-22 07:46] LABS: ALBUMIN 3.4 gm/dL (3.5-5.0); BILIRUBIN,TOTAL 0.5 mg/dL (0.0-1.0); CALCIUM 8.7 mg/dL (8.4-10.2); CREATININE, serum 0.99 (0.52-1.25); MAGNESIUM 2.2 mg/dL (1.6-2.3); PHOSPHOROUS 3.5 mg/dL (2.5-4.5); POTASSIUM 3.7 mmol/L (3.4-5.0); TOTAL PROTEIN 6.3 gm/dL (6.4-8.2)
--- NOTE | 2020-08-22 10:54 | NUR ---
Initial visit attempt; Patient indisposed, Liner Assembler spoke with her who asked that Liner Assembler return later. Liner Assembler also left her card with .
--- NOTE | 2020-08-22 12:33 | NUR ---
Follow-up visit; Patient and her thanked Manager Of Warehouse for visit; encouragement, empathy and prayer.
--- NOTE | 2020-08-22 18:59 | NUR ---
Patient resting in bed at this time. Patient is alert and oriented, answers questions appropriately. Patient up with walking independently in the halls today, independent to bathroom. Patient c/o nausea but no epiesodes of emesis reported. Administered PRN antiemetic per order. BUSINESS PROJECT ANALYST in place per order, turned off at 1850 per order. Patient denies needs, call light within reach.
--- NOTE | 2020-08-22 19:17 | NUR ---
RECEIVED CHANGE OF SHIFT REPORT FROM DAY SHIFT NURSE.
--- NOTE | 2020-08-23 02:20 | NUR ---
Both patient/spouse sleeping, observed patient's breathing as nonlabored and even. Neither patient or spouse woke when door to room opened by this staff nurse.
[2020-08-23 03:28] VITALS: BP 103/55; PULSE 79; TEMP 97.9
[2020-08-23 06:10] LABS: BASO % 0.4 % (0.0-2.0); EOS # 0.3 (0.0-0.7); EOS % 3.4 % (0-4.0); GRAN # 5.1 (1.4-6.5); GRAN % 58.8 % (42.2-75.2); HEMOGLOBIN 10.4 g/dl (12.5-16.0); LYMPH # 2.7 (1.2-3.4); LYMPH % 31.6 % (20.0-51.0); MEAN CELL VOLUME 85 fl (80.0-100.0); MEAN CORPUSCULAR HEMOGLOBIN 26 pg (27.0-31.0); MEAN CORPUSCULAR HGB CONC 31 g/dl (33.0-37.0); MEAN PLATELET VOLUME 10.6 fl (7.4-10.4); MONO # 0.5 (0.1-0.6); MONO % 5.3 % (1.7-9.3); PLATELET COUNT 238 K/mm3 (130-400); RED BLOOD COUNT 4.01 M/mm3 (4.10-5.30); REDCELL DISTRIBUTION WIDTH-CV 14.9 % (11.5-14.5)
[2020-08-23 06:22] LABS: CALCIUM 8.5 mg/dL (8.4-10.2); CREATININE, serum 0.9 (0.52-1.25); POTASSIUM 3.6 mmol/L (3.4-5.0)
[2020-08-23 06:23] LABS: HEMATOCRIT 33.9 % (37.0-47.0)
--- NOTE | 2020-08-23 07:04 | NUR ---
CHANGE OF SHIFT REPORT GIVEN TO DAY SHIFT NURSECASEY RN ACCOMPANIED BY STUDENT NURSE.
--- NOTE | 2020-08-23 08:00 | NUR ---
Patient resting in bed resting in bed at this time, at bedside. Patient states that she is having significant pain that she rates 7/10. Discussed pain management options and encouraged patient to try to wait to 0900 to keep her medications on an even rotation. Offered heating pad or ice in order to minimize pain until medications are due again. Patient denied further needs, call light within reach.
[2020-08-23 08:15] VITALS: BP 94/59; PULSE 77; TEMP 97.5
--- NOTE | 2020-08-23 10:16 | NUR ---
Follow-up attempt; Learning And Development Specialist left prayer card offering God's blessings and information regarding the availability of spiritual care at our hospital.
[2020-08-23 12:20] VITALS: BP 97/60; PULSE 81; TEMP 98
[2020-08-23] MEDS ORDERED: ULTRAM 50MG TAB50 MG PO (13:06)
[2020-08-23] MEDS ORDERED: ROXICODONE 55 MG/TAB PO (13:07)
[2020-08-23] MEDS ORDERED: TYLENOL 500MG500 MG PO (13:08)
[2020-08-23] MEDS ORDERED: COLACE 100100 MG/CAP PO (13:08)
[2020-08-23] MEDS ORDERED: ZOFRAN ODT8 MG PO (13:10)
[2020-08-23] MEDS ORDERED: MOTRIN 600600 MG/TAB PO (13:12)
[2020-08-23] MEDS ORDERED: NYSTATIN OR100 MU/ML PO (13:14)
[2020-08-23 15:46] VITALS: BP 98/56; PULSE 76; TEMP 98.4
--- NOTE | 2020-08-23 16:00 | NUR ---
Discharge teaching completed. Discussed follow up appointments, discharge medications, and discharge instructions. Also reviewed lab values and vital signs. Patient and family verbalized understanding. Reviewed PICC post removal instructions, patient and family verbalized understanding. Patient escorted to ED where she entered a private vehicle.
== END 2020-08-23 16:00 | disposition home or self-care (01) | DRG 331 ==
LOC: SURG 08-20 11:07 → INPTSU 08-20 11:07 → SURG 08-20 13:00
PROVIDERS: ADMIT Surgery
PROC: 0DQP4ZZ Repair Rectum, Percutaneous Endoscopic Approach (ICD-10-PCS; principal; 2020-08-21)
PROC: 8E0W4CZ Robotic Assisted Procedure of Trunk Region, Percutaneous Endoscopic Approach (ICD-10-PCS; 2020-08-21)
PROC: 0HB5XZZ Excision of Chest Skin, External Approach (ICD-10-PCS; 2020-08-21)
PROC: 02HV33Z Insertion of Infusion Device into Superior Vena Cava, Percutaneous Approach (ICD-10-PCS; 2020-08-21)
DX: K62.3 Rectal prolapse (principal); L98.9 Disorder of the skin and subcutaneous tissue, unspecified; F41.9 Anxiety disorder, unspecified; D64.9 Anemia, unspecified; E78.00 Pure hypercholesterolemia, unspecified; E03.9 Hypothyroidism, unspecified; F32.9 Major depressive disorder, single episode, unspecified; G43.909 Migraine, unspecified, not intractable, without status migrainosus; Z90.710 Acquired absence of both cervix and uterus; Z86.711 Personal history of pulmonary embolism; Z86.73 Personal history of transient ischemic attack (TIA), and cerebral infarction without residual deficits; Z90.49 Acquired absence of other specified parts of digestive tract; Z88.8 Allergy status to other drugs, medicaments and biological substances; Z91.041 Radiographic dye allergy status; Z79.01 Long term (current) use of anticoagulants
CPT/HCPCS: C1751; J0690; J1100; J1170; J1650; J1885; J2175; J2250; J2270; J2405; J2550; J2704; J3010; J7120

== ENCOUNTER 2021-05-09 23:20 | Emergency (ER) | payer MEDICAID ==
[~2021-05-09] VITALS: Ht 165.1 cm; Wt 109.1 kg
[~2021-05-09 23:20] MED LIST changes: +MAG-OX 400400 MG/TAB PO; +NYSTATIN OR100 MU/ML PO; +ROXICODONE 55 MG/TAB PO; +SYNTHROID0.125 MG/T PO
[2021-05-09 23:29] VITALS: TEMP 98.2
[2021-05-10 00:37] LABS: COLLECTION METHOD CLEAN CATCH
[2021-05-10 00:47] LABS: MUCOUS Present (NOT PRESENT); PH 5 (5-8); SQUAMOUS EPITHELIAL 0-2 /hpf (0-10); URINE APPEARANCE Clear (CLEAR/HAZY); URINE BACTERIA None Seen /hpf (NONE SEEN); URINE BILIRUBIN Negative (NEGATIVE); URINE BLOOD Negative (NEGATIVE); URINE COLOR Amber (YELLOW); URINE GLUCOSE Negative (NEGATIVE); URINE KETONE Trace (NEGATIVE); URINE LEUKOCYTE ESTERASE Negative (NEGATIVE); URINE NITRATE Positive (NEGATIVE); URINE PROTEIN(semi-quant) 1+ (NEGATIVE); URINE RBC 0-2 /hpf (0-2); URINE UROBILINOGEN >=4.0 (NEGATIVE)
[2021-05-10 01:07] LABS: BASO # 0.1 K/mm3 (0.0-0.2); BASO % 0.4 % (0.0-2.0); EOS # 0.1 K/mm3 (0.0-0.7); EOS % 0.9 % (0.0-4.0); GRAN # 7.8 K/mm3 (1.4-6.5); GRAN % 63.4 % (42.2-75.2); HEMATOCRIT 36.2 % (37.0-47.0); HEMOGLOBIN 11.7 g/dl (12.5-16.0); LYMPH # 3.8 K/mm3 (1.2-3.4); LYMPH % 31.3 % (20.0-51.0); MEAN CELL VOLUME 80 fl (80.0-100.0); MEAN CORPUSCULAR HEMOGLOBIN 26 pg (27-31); MEAN CORPUSCULAR HGB CONC 32 g/dl (33.0-37.0); MEAN PLATELET VOLUME 10.2 fl (7.4-10.4); MONO # 0.4 K/mm3 (0.1-0.6); MONO % 3.1 % (1.7-9.3); PLATELET COUNT 320 K/mm3 (130-400); RED BLOOD COUNT 4.54 M/mm3 (4.10-5.30); REDCELL DISTRIBUTION WIDTH-CV 14.4 % (11.5-14.5)
[2021-05-10 01:32] LABS: ALBUMIN 3.5 gm/dL (3.5-5.0); BILIRUBIN,TOTAL 0.6 mg/dL (0.2-1.2); C-REACTIVE PROTEIN 0.73 mg/dL (0.00-0.50); CALCIUM 8.6 mg/dL (8.4-10.2); CREATININE, serum 0.8 mg/dL (0.57-1.11); POTASSIUM 3.4 mmol/L (3.5-4.5); TOTAL PROTEIN 6.8 gm/dL (6.2-8.1)
[2021-05-10] MEDS ORDERED: PERCOCET 325 MG1 TA2 PO (02:48)
[2021-05-10 03:00] VITALS: BP 150/95; PULSE 88
== END 2021-05-10 03:00 | disposition home or self-care (01) ==
LOC: COL.ER 23:20
PROVIDERS: Nurse Practitioner
DX: R10.31 Right lower quadrant pain (principal); Z90.49 Acquired absence of other specified parts of digestive tract; Z90.711 Acquired absence of uterus with remaining cervical stump
CPT/HCPCS: J1200; J1885; J2270; J2405; J2550; J7030; Q9967

== ENCOUNTER → 2021-10-29 | Outpatient (CLI) | payer OTHER, MEDICAID | LOC: COL.RAD 07:56 | DX: N83.201 Unspecified ovarian cyst, right side (principal) ==

== ENCOUNTER 2021-12-04 10:24 | Day surgery (SDC) | payer OTHER, MEDICAID ==
[~2021-12-04] VITALS: Ht 165.1 cm; Wt 116.3 kg
[2021-12-04] VITALS (7 sets, daily range): BP systolic 104–121; BP diastolic 52–75; PULSE 61–79; TEMP 97.6–99.1
--- NOTE | 2021-12-04 12:39 | NUR ---
COMPLAINED OF ZOFRAN AND 4MG IV GIVEN PER ORDER OF ARIADNA DYKES CRNA.
[2021-12-04] MEDS ORDERED: COLACE 100100 MG/CAP PO (12:58)
[2021-12-04] MEDS ORDERED: PERCOCET 325 MG1 TA2 PO ×3 (12:58→13:34)
--- NOTE | 2021-12-04 13:30 | NUR ---
DR. BARILLAS FINALIZED MEDICATIONS PRIOR TO NURSE CONFIRMING MEDICATIONS AND UNABLE TO COMPLETE.
--- NOTE | 2021-12-04 15:10 | NUR ---
PT TO [place]AY 6 PER CART FROM PACU. RECEIVED REPORT. VS OBTAINED. PT DENIES ANY NEEDS AT THIS TIME.
--- NOTE | 2021-12-04 15:40 | NUR ---
PT TOLERATING SPRITE, APPLESAUCE, AND CRACKERS. DENIES ANY OTHER NEEDS AT THIS TIME.
--- NOTE | 2021-12-04 16:00 | NUR ---
PT C/O PAIN. OXYCODONE 5 MG AND ACETAMINOPHEN 1000 MG.
--- NOTE | 2021-12-04 17:00 | NUR ---
1620-IV DC'D. PT TOLERATED WELL. 1645-DISCHARGE EDUCATION COMPLETED WITH PT AND HER FAMILY. THEY VERBALIZED UNDERSTANDING OF HOME AND FOLLOW UP CARE. ALL QUESTIONS ANSWERED. DISCHARGE PAPERWORK GIVEN TO PT.
[2021-12-04] MEDS ORDERED: PHENERGAN 25 TA25 MG PO (17:23)
[2021-12-13] MEDS ORDERED: HYDROCORTISONE30 GM RC (12:51)
== END 2021-12-04 17:00 | disposition home or self-care (01) ==
LOC: SDCO 10:24
DX: N83.201 Unspecified ovarian cyst, right side (principal); K64.8 Other hemorrhoids; N73.6 Female pelvic peritoneal adhesions (postinfective)
CPT/HCPCS: J0690; J1100; J1885; J2175; J2270; J2405; J2550; J2704; J2710; J3010; J7120